=== PATIENT | male | born 1955 | race Caucasian/White ===

== ENCOUNTER 2019-05-29 15:45 | Inpatient (IN) | payer OTHER ==
[~2019-05-29] VITALS: Ht 180.3 cm; Wt 99.7 kg
[~2019-05-29 15:45] MED LIST: Bactrim Ds Tab1 EACH PO
[2019-05-29] MEDS ORDERED: Prinivil10 MG PO (16:11)
[2019-05-29] MEDS ORDERED: LASIX40 MG PO (16:12)
[2019-05-29 16:54] LABS: BASOPHILS ABSOLUTE AUTO 0.01 K/mm3 (0.00-0.23); BASOPHILS PERCENT AUTO 1 % (0-2); EOSINOPHILS ABSOLUTE AUTO 0.04 K/mm3 (0.00-0.68); EOSINOPHILS PERCENT AUTO 2 % (0-6); Hematocrit 45.8 % (37.0-53.0); Hemoglobin 16.2 g/dL (13.5-17.5); IMMATURE GRAN ABSOLUTE AUTO 0.01 K/mm3 (0.00-0.10); IMMATURE GRAN PERCENT AUTO 1 % (0-1); LYMPHOCYTES ABSOLUTE AUTO 0.67 K/mm3 (0.84-5.20); LYMPHOCYTES PERCENT AUTO 31 % (21-46); MONOCYTES PERCENT AUTO 9 % (4-13); Mean Corpuscular HGB 36.3 pg (26.0-34.0); Mean Corpuscular HGB Conc 35.4 g/dL (31.5-36.5); Mean Corpuscular Volume 103 fL (80-100); Mean Platelet Volume 10.7 fL (9.1-12.4); NEUTROPHILS ABSOLUTE AUTO 1.21 K/mm3 (1.96-9.15); NEUTROPHILS PERCENT AUTO 57 % (41-73); Platelet Count 82 K/mm3 (150-400); RDW Coefficient Variation 11.2 % (11.7-14.2); Red Blood Cell Count 4.46 M/mm3 (4.30-5.90); White Blood Cell Count 2.14 K/mm3 (4.00-11.30)
[2019-05-29 17:14] LABS: Alanine Aminotransfer (ALT/SGP 149 U/L (12-78); Albumin, Blood 3.1 g/dL (3.4-5.0); Albumin/Globulin Ratio 0.6 (0.8-1.8); Alk Phos 86 U/L (50-136); Anion Gap 7 mmol/L (6-16); Aspartate Aminotrans (AST/SGOT 218 U/L (12-37); Bilirubin, Total 0.8 mg/dL (0.1-1.0); Blood Urea Nitrogen 17 mg/dL (8-24); Bun/Creatinine Ratio 15.3 (12.0-20.0); CO2, Blood 25 mmol/L (21-32); Calcium, Blood 9.2 mg/dL (8.5-10.1); Chloride, Blood 97 mmol/L (98-108); Creatinine, Blood 1.11 mg/dL (0.60-1.20); Globulin, Blood 5.4 g/dL (2.2-4.0); Glomerular Filtration Rate >60 (60-); Glucose, Blood 136 mg/dL (70-99); Potassium, Blood 4.2 mmol/L (3.5-5.5); Sodium, Blood 129 mmol/L (136-145); Total Protein, Blood 8.5 g/dL (6.4-8.2)
[2019-05-29 17:44] LABS: Influenza A Negative (NEGATIVE); Influenza B Negative (NEGATIVE)
[2019-05-29 17:53] LABS: Blood, Urine 5+ (Neg); Glucose Qualitative, Urine Neg (Neg); Ketones, Urine 1+ (Neg); Leukocyte Esterase, Urine 1+ (Neg); Nitrite, Urine Pos (Neg); Protein, Urine 4+ (Neg); Urobilinogen, Urine 3+ (Normal)
[2019-05-29 18:15] LABS: Bilirubin, Urine 2+ (Neg); Color, Urine Amber (P-Yellow)
[2019-05-29 18:16] LABS: Appearance, Urine Clear (Clear)
[2019-05-29 18:17] LABS: Squamous Epithelial Cells Mod /hpf (Few)
[2019-05-29 18:18] LABS: Bacteria Rare /hpf; Yeast/Fungi Urine Few /hpf
[2019-05-29 18:19] LABS: Hyaline Casts Rare /lpf (0-2)
[2019-05-29 19:13] LABS: International Normalized Ratio 1.12; Prothrombin Time Results 11.9 Sec (9.7-11.5)
[2019-05-30 05:15] LABS: Hematocrit 41.2 % (37.0-53.0); Hemoglobin 14.4 g/dL (13.5-17.5); Mean Corpuscular Volume 103 fL (80-100); Mean Platelet Volume 10.1 fL (9.1-12.4); Platelet Count 63 K/mm3 (150-400); RDW Coefficient Variation 11.4 % (11.7-14.2); RDW Standard Deviation 43.3 fL (35.1-46.3)
[2019-05-30 05:29] LABS: Anion Gap 6 mmol/L (6-16); Blood Urea Nitrogen 16 mg/dL (8-24); Bun/Creatinine Ratio 18.4 (12.0-20.0); CO2, Blood 25 mmol/L (21-32); Calcium, Blood 8.1 mg/dL (8.5-10.1); Chloride, Blood 101 mmol/L (98-108); Creatinine, Blood 0.87 mg/dL (0.60-1.20); Glomerular Filtration Rate >60 (60-); Glucose, Blood 109 mg/dL (70-99); Sodium, Blood 132 mmol/L (136-145)
--- NOTE | 2019-05-30 07:40 | NUR ---
SHIFT SUMMARY PT A&O; O2 SATS >94 ON RA; DENIES SOB CURRENTLY; VSS; DENIES CHEST PAIN; HEP GTT INFUSING VERIFIED W/ DAY SHIFT RN; PT SEEMS OVERWHELMED AND IS TEARFUL AT TIMES; FACE IS FLUSHED AND WARM TO TOUCH HOWEVER PT IS AFEBRILE; DENIES NEEDS AT THIS TIME; CALL LIGHT IN REACH; BED IN LOWEST POSITION; REPORT GIVEN TO DAY SHIFT RN.
--- NOTE | 2019-05-30 08:47 | NUR ---
AM NOTE... ASSUMED CARE OF PT APROX 0700. PT IS A&Ox4 AND SBA IN THE ROOM. PT WAS ADMITTED FOR PE/DVTS. PT'S VS STABLE AT THIS TIME, PT IS ON RA, PT DENIES CHEST PAIN/PRESSURE N/V OR SOB AT THIS TIME. PT STATES HE FEELS BETTER THAN YESTERDAY WHEN HE CAME IN. WILL CONTINUE TO MONITOR.
[2019-05-30 13:12] LABS: Prostate Specific Antigen 0.239 ng/mL (0.000-4.000)
--- NOTE | 2019-05-30 18:45 | NUR ---
SHIFT SUMMARY... NO ACUTE NEGATIVE CHANGES NOTED THIS SHIFT. PT HAS DENIED ANY CHEST PAIN/PRESSURE THIS SHIFT. PT HAS DENIED SOB AND HAS BEEN ON RA ALL SHIFT. PT'S VS STABLE, HEPARIN GTT RUNNING PER ORDERS. PT HAS BEEN SBA TO THE BATHROOM TO VOID AND HAVE BM. CALL LIGHT IN REACH WILL CONTINUE TO MONITOR UNTIL REPORT IS GIVEN TO ONCOMING RN.
[2019-05-31 01:07] LABS: HBSAG SCREEN Negative (Negative); HEP A AB, IGM Negative (Negative); HEP B CORE AB, IGM Negative (Negative); HEP C VIRUS AB >11.0 (0.0-0.9)
[2019-05-31 03:25] LABS: BASOPHILS ABSOLUTE AUTO 0.02 K/mm3 (0.00-0.23); BASOPHILS PERCENT AUTO 1 % (0-2); EOSINOPHILS ABSOLUTE AUTO 0.36 K/mm3 (0.00-0.68); EOSINOPHILS PERCENT AUTO 14 % (0-6); Hemoglobin 13.7 g/dL (13.5-17.5); Mean Corpuscular HGB 36.8 pg (26.0-34.0); Mean Corpuscular HGB Conc 35.1 g/dL (31.5-36.5); Mean Corpuscular Volume 105 fL (80-100); Mean Platelet Volume 10.4 fL (9.1-12.4); Platelet Count 57 K/mm3 (150-400); RDW Coefficient Variation 11.5 % (11.7-14.2); RDW Standard Deviation 44.8 fL (35.1-46.3); Red Blood Cell Count 3.72 M/mm3 (4.30-5.90); White Blood Cell Count 2.63 K/mm3 (4.00-11.30)
[2019-05-31 03:33] LABS: IMMATURE GRAN ABSOLUTE AUTO 0.01 K/mm3 (0.00-0.10); IMMATURE GRAN PERCENT AUTO 0 % (0-1); LYMPHOCYTES ABSOLUTE AUTO 1.61 K/mm3 (0.84-5.20); LYMPHOCYTES PERCENT AUTO 61 % (21-46); MONOCYTES ABSOLUTE AUTO 0.16 K/mm3 (0.16-1.47); MONOCYTES PERCENT AUTO 6 % (4-13); NEUTROPHILS ABSOLUTE AUTO 0.47 K/mm3 (1.96-9.15); NEUTROPHILS PERCENT AUTO 18 % (41-73)
[2019-05-31 03:37] LABS: Anion Gap 5 mmol/L (6-16); Blood Urea Nitrogen 16 mg/dL (8-24); Bun/Creatinine Ratio 21.3 (12.0-20.0); CO2, Blood 25 mmol/L (21-32); Calcium, Blood 8.3 mg/dL (8.5-10.1); Chloride, Blood 105 mmol/L (98-108); Creatinine, Blood 0.75 mg/dL (0.60-1.20); Glomerular Filtration Rate >60 (60-); Glucose, Blood 97 mg/dL (70-99); Sodium, Blood 135 mmol/L (136-145)
--- NOTE | 2019-05-31 06:24 | NUR ---
SHIFT SUMMARY PT CONTINUES TO BE A&O X4. VSS. MONITOR SHOWS SB WHILE PT SLEEPING W/ HR TOUCHING LOW 45 BPM, AVERAGING 50's-60's. SPO2 > 92% ON RA. +1 BLE SWELLING. HEPARIN GTT & NS GTT INFUSING PER ORDERS. 24 HR URINE IN PROGRESS W/ URINE CONTAINER SITTING ON ICE. WILL CONTINUE TO MONITOR AND PROVIDE CARE UNTIL REPORT OFF TO DAY SHIFT RN.
--- NOTE | 2019-05-31 09:12 | NUR ---
AM NOTE... ASSUMED CARE OF PT APROX 0700. PT IS A&Ox4 AND SBA/IND IN THE ROOM. PT IS ON HEPARIN GTT PER ORDERS. PT DENIES ANY CHEST PAIN/PRESSURE N/V OR SOB. PT DENIES PAINS IN HIS LEGS. PT'S VS STABLE, SR/SB 50'S-60'S. L/S CLEAR T/O ON RA. BT PRESENT AND HYPERACTIVE ABD IS SOFT AND NONTENDER TO PALP. AT THE BEDSIDE. WILL CONTINUE TO MONITOR.
[2019-05-31] MEDS ORDERED: XARELTO15 MG PO (10:38)
--- NOTE | 2019-05-31 13:10 | NUR ---
PT D/C HOME... PT D/C HOME WITH ALL OF HIS BELONGINGS, VS STABLE, PT DENIES SOB OR CHEST PAIN AT THIS TIME. MEDS CALLED INTO PT'S PHARMACY OF CHOICE. DISCHARGE EDUCATION AND NEW MEDICATION EDUCATION PROVIDED. PT AND VERBALIZED THEIR UNDERSTANDING. PT'S IVS REMOVED WNL. PT WAS ESCORTED TO CAR VIA W/C.
[2019-06-03 15:09] LABS: A/G RATIO 0.7 (0.7-1.7); ALPHA-1-GLOBULIN 0.3 g/dL (0.0-0.4); ALPHA-2-GLOBULIN 0.8 g/dL (0.4-1.0); BETA GLOBULIN 0.9 g/dL (0.7-1.3); GAMMA GLOBULIN 2.1 g/dL (0.4-1.8); GLOBULIN, TOTAL 4.1 g/dL (2.2-3.9); M-SPIKE Not Observed g/dL (Not Observed); PROTEIN, TOTAL, SERUM 7.1 g/dL (6.0-8.5)
== END 2019-05-31 13:22 | disposition home or self-care (01) | DRG 176 ==
LOC: ER 15:45 → PCU 18:37
PROVIDERS: Internal Medicine; Physician Assistant; ADMIT Internal Medicine
DX: I26.99 Other pulmonary embolism without acute cor pulmonale (principal); E87.1 Hypo-osmolality and hyponatremia; N39.0 Urinary tract infection, site not specified; I82.403 Acute embolism and thrombosis of unspecified deep veins of lower extremity, bilateral; F10.20 Alcohol dependence, uncomplicated; D69.6 Thrombocytopenia, unspecified; K76.0 Fatty (change of) liver, not elsewhere classified; D72.819 Decreased white blood cell count, unspecified; Z87.891 Personal history of nicotine dependence
CPT/HCPCS: 36415; 71260; 74176; 76705; 80048; 80053; 80074; 81001; 81241; 83605; 84165; 85025; 85027; 85303; 85306; 85610; 85730; 87040; 87086; 87804; 90686; 93005; 93010; 93306; 96361; 96365-59; 96367; 96375-59; 99285-25; A9270; G0103; J0696; J1644; J2543; J3370; J7030; J7050; Q9967

== ENCOUNTER 2020-03-20 13:44 | Inpatient (IN) | payer OTHER ==
[~2020-03-20] VITALS: Ht 175.3 cm; Wt 95.0 kg
[~2020-03-20 13:44] MED LIST changes: +LASIX40 MG PO; +Prinivil10 MG PO; +XARELTO15 MG PO
[2020-03-20 14:15] LABS: BASOPHILS ABSOLUTE AUTO 0.01 K/mm3 (0.00-0.23); BASOPHILS PERCENT AUTO 0 % (0-2); EOSINOPHILS PERCENT AUTO 0 % (0-6); Hematocrit 25.9 % (37.0-53.0); Hemoglobin 8.9 g/dL (13.5-17.5); IMMATURE GRAN ABSOLUTE AUTO 0.04 K/mm3 (0.00-0.10); IMMATURE GRAN PERCENT AUTO 1 % (0-1); LYMPHOCYTES ABSOLUTE AUTO 1.08 K/mm3 (0.84-5.20); LYMPHOCYTES PERCENT AUTO 14 % (21-46); MONOCYTES ABSOLUTE AUTO 0.43 K/mm3 (0.16-1.47); MONOCYTES PERCENT AUTO 5 % (4-13); Mean Corpuscular HGB 37.9 pg (26.0-34.0); Mean Corpuscular HGB Conc 34.4 g/dL (31.5-36.5); Mean Corpuscular Volume 110 fL (80-100); Mean Platelet Volume 11.9 fL (9.1-12.4); NEUTROPHILS ABSOLUTE AUTO 6.42 K/mm3 (1.96-9.15); NEUTROPHILS PERCENT AUTO 81 % (41-73); Platelet Count 66 K/mm3 (150-400); RDW Coefficient Variation 13.2 % (11.7-14.2); RDW Standard Deviation 52.3 fL (35.1-46.3); Red Blood Cell Count 2.35 M/mm3 (4.30-5.90); White Blood Cell Count 7.98 K/mm3 (4.00-11.30)
[2020-03-20 14:33] LABS: Alanine Aminotransfer (ALT/SGP 43 U/L (12-78); Albumin, Blood 2.2 g/dL (3.4-5.0); Albumin/Globulin Ratio 0.4 (0.8-1.8); Alk Phos 71 U/L (50-136); Anion Gap 6 mmol/L (6-16); Aspartate Aminotrans (AST/SGOT 50 U/L (12-37); Bilirubin, Total 1.3 mg/dL (0.1-1.0); Blood Urea Nitrogen 14 mg/dL (8-24); Bun/Creatinine Ratio 18.3 (12.0-20.0); CO2, Blood 24 mmol/L (21-32); Calcium, Blood 8.8 mg/dL (8.5-10.1); Chloride, Blood 100 mmol/L (98-108); Creatinine, Blood 0.76 mg/dL (0.60-1.20); Glomerular Filtration Rate >60 (60-); Glucose, Blood 115 mg/dL (70-99); Potassium, Blood 3.8 mmol/L (3.5-5.5); Sodium, Blood 130 mmol/L (136-145); Total Protein, Blood 7.2 g/dL (6.4-8.2)
[2020-03-20 15:42] LABS: Influenza A, PCR Negative (NEGATIVE); Influenza B, PCR Negative (NEGATIVE); Resp Syncytial Virus, PCR Negative (NEGATIVE); SARS-Cov-2 (COVID-19) PCR, MMC Negative (NEGATIVE)
[2020-03-20] MEDS ORDERED: XARELTO20 M1 PO (16:18)
[2020-03-20] MEDS ORDERED: SPIRONOLACTONE25 MG PO (16:18)
[2020-03-20] MEDS ORDERED: FUROSEMIDE20 MG PO (16:18)
[2020-03-20] MEDS ORDERED: AMLODIPINE BESY10 MG PO (16:18)
[2020-03-20] MEDS ORDERED: SOFOSBUVIR-VEL1 EAC1 PO (19:25)
[2020-03-20 22:03] LABS: Hematocrit 24.7 % (37.0-53.0); Hemoglobin 8.4 g/dL (13.5-17.5)
--- NOTE | 2020-03-20 22:10 | NUR ---
ASSUMED CARE OF PATIENT AT APPROXIMATELY 1910 FROM HAFSA Jaquez RN. PATIENT NEW ADMIT FROM ER SHORTLY BEFORE SHIFT CHANGE. PATIENT ALERT AND ORIENTED X4; FORGETFUL. PATIENT DENIES PAIN, NUMBNESS, TINGLING, DIZZINESS OR NAUSEA. PATIENT USES URINAL IN BED. NSR ON TELE; OXYGEN SATURATION ABOVE 90% ON ROOM AIR. PIV S/L. PATIENT CURRENTLY RESTING IN BED; CALL LIGHT IN REACH; BED IN LOWEST POSISTION; BED ALARM ON; WILL CONTINUE TO MONITOR AND ASSESS UNTIL END OF SHIFT.
[2020-03-21 06:09] LABS: BASOPHILS ABSOLUTE AUTO 0.01 K/mm3 (0.00-0.23); BASOPHILS PERCENT AUTO 0 % (0-2); EOSINOPHILS ABSOLUTE AUTO 0.01 K/mm3 (0.00-0.68); EOSINOPHILS PERCENT AUTO 0 % (0-6); Hematocrit 25.3 % (37.0-53.0); Hemoglobin 8.6 g/dL (13.5-17.5); IMMATURE GRAN ABSOLUTE AUTO 0.03 K/mm3 (0.00-0.10); IMMATURE GRAN PERCENT AUTO 1 % (0-1); LYMPHOCYTES PERCENT AUTO 19 % (21-46); MONOCYTES PERCENT AUTO 6 % (4-13); Mean Corpuscular HGB 37.2 pg (26.0-34.0); Mean Corpuscular Volume 110 fL (80-100); Mean Platelet Volume 11.8 fL (9.1-12.4); NEUTROPHILS ABSOLUTE AUTO 4.58 K/mm3 (1.96-9.15); NEUTROPHILS PERCENT AUTO 73 % (41-73); Platelet Count 65 K/mm3 (150-400); RDW Coefficient Variation 13.2 % (11.7-14.2); RDW Standard Deviation 53.3 fL (35.1-46.3); Red Blood Cell Count 2.31 M/mm3 (4.30-5.90); White Blood Cell Count 6.23 K/mm3 (4.00-11.30)
[2020-03-21 06:21] LABS: International Normalized Ratio 1.49; Prothrombin Time Results 15.6 Sec (9.7-11.5)
[2020-03-21 06:36] LABS: Alanine Aminotransfer (ALT/SGP 39 U/L (12-78); Albumin/Globulin Ratio 0.4 (0.8-1.8); Alk Phos 64 U/L (50-136); Anion Gap 7 mmol/L (6-16); Aspartate Aminotrans (AST/SGOT 46 U/L (12-37); Bilirubin, Total 1.2 mg/dL (0.1-1.0); Blood Urea Nitrogen 13 mg/dL (8-24); Bun/Creatinine Ratio 17.3 (12.0-20.0); CO2, Blood 25 mmol/L (21-32); Calcium, Blood 8.7 mg/dL (8.5-10.1); Chloride, Blood 100 mmol/L (98-108); Creatinine, Blood 0.75 mg/dL (0.60-1.20); Globulin, Blood 4.7 g/dL (2.2-4.0); Glomerular Filtration Rate >60 (60-); Glucose, Blood 97 mg/dL (70-99); Potassium, Blood 3.9 mmol/L (3.5-5.5); Sodium, Blood 132 mmol/L (136-145); Total Protein, Blood 6.7 g/dL (6.4-8.2)
[2020-03-21 09:49] LABS: Percent Saturation 35.5 % (20.0-50.0)
--- NOTE | 2020-03-21 18:28 | NUR ---
PT SUMMARY: BOWEL PREP STARTED AT 1800 FOR COLONOSCOPY TOMORROW, PT AWARE AND EDUCATED ABOUT THE PREP. PT HAD A BOWEL MOVEMENT AT LUNCH TIME TODAY WITH NO BLOOD IN THE STOOL NOTED, STOOL YELLOW BROWN IN COLOR. HGB STABLE AT 8.6. NO OTHER SIGNS OF BLEEDING AT THIS TIME. PT HAS BEEN GETTING UP TO USE THE BATHROOM 1PA. USES URINAL TO VOID. PT REMAINS ON CLEAR LIQUID DIET. NO OTHER ISSUES ENCOUNTERED FOR THE SHIFT, VITALS HAS BEEN STABLE. DENIES ANY CHEST PAIN. CALL LIGHTS IN REACH, ABLE TO MAKE NEEDS KNOWN WILL REPORT TO ONCOMING SHIFT
--- NOTE | 2020-03-21 21:06 | NUR ---
ASSUMED CARE OF PATIENT AT APPROXIMATELY 1900 FROM BON Jaquez RN. PATIENT ALERT AND ORIENTED X4. PATIENT DENIES PAIN, NUMBNESS, TINGLING, DIZZINESS OR NAUSEA. PATIENT ON BEDSIDE COMMODE DURING BEDSIDE REPORT. STOOL WAS DESCRIBED BY BANDSAW OPERATOR "SEO COLA"; NOW IS A YELLOW GREEN COLOR. PATIENT TO TAKE HIS SECOND HALF OF GOLCubeyouLY AT 2200. NSR ON TELE; OXYGEN SATURATION ABOVE 90% ON ROOM AIR. PIV S/L. PATIENT CURRENTLY RESTING IN BED; CALL LIGHT IN REACH; BED IN LOWEST POSISTION; WILL CONTINUE TO MONITOR AND ASSESS UNTIL END OF SHIFT.
--- NOTE | 2020-03-21 23:19 | NUR ---
TWO LARGE BM'S; ONE YELLOW LIQUID WITH RED BLOOD NOTED AND BLOOD AFTER WIPING AND A SECOND OF YELLOW LIQUID. VSS. PATIENT FINISHED 2ND HALF OF GOLYTELY WITHIN 45 MINUTES.
--- NOTE | 2020-03-21 23:20 | NUR ---
STOOL YELLOW AND CLEAR
[2020-03-22 03:37] LABS: BASOPHILS ABSOLUTE AUTO 0.01 K/mm3 (0.00-0.23); BASOPHILS PERCENT AUTO 0 % (0-2); EOSINOPHILS ABSOLUTE AUTO 0.01 K/mm3 (0.00-0.68); EOSINOPHILS PERCENT AUTO 0 % (0-6); Hematocrit 24.8 % (37.0-53.0); Hemoglobin 8.3 g/dL (13.5-17.5); IMMATURE GRAN ABSOLUTE AUTO 0.03 K/mm3 (0.00-0.10); IMMATURE GRAN PERCENT AUTO 1 % (0-1); LYMPHOCYTES ABSOLUTE AUTO 1.16 K/mm3 (0.84-5.20); LYMPHOCYTES PERCENT AUTO 19 % (21-46); MONOCYTES PERCENT AUTO 7 % (4-13); Mean Corpuscular HGB 36.7 pg (26.0-34.0); Mean Corpuscular HGB Conc 33.5 g/dL (31.5-36.5); Mean Corpuscular Volume 110 fL (80-100); Mean Platelet Volume 11.9 fL (9.1-12.4); NEUTROPHILS ABSOLUTE AUTO 4.37 K/mm3 (1.96-9.15); NEUTROPHILS PERCENT AUTO 73 % (41-73); Platelet Count 63 K/mm3 (150-400); RDW Coefficient Variation 13.1 % (11.7-14.2); Red Blood Cell Count 2.26 M/mm3 (4.30-5.90); White Blood Cell Count 5.98 K/mm3 (4.00-11.30)
[2020-03-22 03:55] LABS: Anion Gap 6 mmol/L (6-16); Blood Urea Nitrogen 12 mg/dL (8-24); Bun/Creatinine Ratio 15.4 (12.0-20.0); CO2, Blood 26 mmol/L (21-32); Calcium, Blood 8.7 mg/dL (8.5-10.1); Chloride, Blood 100 mmol/L (98-108); Creatinine, Blood 0.78 mg/dL (0.60-1.20); Glomerular Filtration Rate >60 (60-); Glucose, Blood 106 mg/dL (70-99); Potassium, Blood 3.6 mmol/L (3.5-5.5); Sodium, Blood 132 mmol/L (136-145)
--- NOTE | 2020-03-22 06:31 | NUR ---
PATIENT SLEPT ABOUT SIX HOURS LAST NIGHT. VSS. WILL CONTINUE TO MONITOR AND ASSESS UNTIL END OF SHIFT.
--- NOTE | 2020-03-22 11:17 | NUR ---
INTO SDS VIA GURPictrition AppY FROM PCU ROOM. History, Chart, Medications and Allergies reviewed before start of procedure.Patient confirms NPO status and agrees with scheduled surgery. Patient states colon prep results clear.Lungs clear T/O to Auscultation.
--- NOTE | 2020-03-22 11:25 | NUR ---
03/22/20 1125 My Loco History, Chart, Medications and Allergies reviewed before start of procedure.Patient confirms NPO status and agrees with scheduled surgery.3-LEAD EKG REVIEWED WITH PHYSICIAN PRIOR TO START OF PROCEDURE.MONITOR INTACT WITH CONTINUOUS PULSE OXIMETRY AND INTERMITTENT BP.O2 VIA N/C INTACT THROUGHOUT SEDATION/PROCEDURE. PATIENT DETERMINED TO BE ASA APPROPRIATE FOR PROPOFOL SEDATION PRIOR TO START OF PROCEDURE BY DR. PALMA
--- NOTE | 2020-03-22 13:23 | NUR ---
Received pt from endoscopy. Arlene rn, accompanied pt to PCU 8. Pt was assisted by Arlene and myself to the bedside commode from the stretcher. He is unsteady and weak. Arlene states that he had a fever during the procedure, and Dr. Belcher is aware. Gait belt put on for safety and pt stability while transferring.
--- NOTE | 2020-03-22 13:35 | NUR ---
Dr. Belcher here to see the patient. New orders received. Gave Niak Burton RN, bedside report.
--- NOTE | 2020-03-22 15:04 | NUR ---
PT ARRIVED BACK IN THE UNIT POST COLONOSCOPY PROCEDURE. PT HAD MULTIPLE POLYPS REMOVAL, PT TO REMAIN ON CLEAR LIQUID DIET WAS ALSO STARTED ON IV ZOSYN. PER REPORT BLEEDING WAS FROM HEMORRHOIDS, CREAM WAS ORDERED BID. DR PALMA SPOKE WITH THE PT ABOUT THE PLAN, PT TO STAY OVER NIGHT FOR OBSERVATION. PT WAS C/O CHILLS AND BEING COLD HR TACH UP TO 130'S BP SYSTOLIC 130-160'S, SATS ABOVE 94% ON RA, AFEBRILE. PT WAS GIVEN WARM BLANKETS AND HEATING PAD PT STARTED TO CALM DOWN AND FELT BETTER. PT ALSO C/O ABD PAIN 3/10 MOSTLY FROM PROCEDURE PT STATED. PT IS NOW RESTING IN BED, AT BEDSIDE AWARE OF THE PLANS. CALL LIGHTS IN REACH WILL CONTINUE TO MONITOR
--- NOTE | 2020-03-22 18:35 | NUR ---
IV dressing noted loose. It was removed, and insertion site was cleansed per the usual routine and dressed with sterile window dressing. No swelling, no redness, no tenderness at the site. IV infusing continuously.
--- NOTE | 2020-03-22 18:40 | NUR ---
PT SUMMARY: PT RAISED A TEMP 102 AFTER PT HAD CHILLS SUSPECTING MAYBE DUE TO HEATING PAD AND WARM BLANKETS REQUESTED BY PT, TEMP WENT DOWN TO 99.5 AFTER [facility] BLANKETS REMOV[facility], DR PACKER MADE AWARE ORDERED BLOOD CULTURE FOR POSSIBLE SEPSIS. PT IS NOW CALM AND RESTED IN BED VITALS BACK TO BASELINE HRR SR 90'S, BP SYSTOLIC 108, SATS ABOVE 95% ON RA AFEBRILE. PT CONTINUES TO HAVE BLOODY DISCHARGE PER RECTUM DUE TO HEMMORHOIDS, TO START HEMMORHOID CREAM TONIGHT. PT WITH NO COMPLAINTS AT THIS TIME, PT IN BED, CALL LIGHTS IN REACH, WILL REPORT TO ONCOMING SHIFT
[2020-03-23 04:49] LABS: BASOPHILS ABSOLUTE AUTO 0.02 K/mm3 (0.00-0.23); BASOPHILS PERCENT AUTO 0 % (0-2); Hematocrit 24.7 % (37.0-53.0); Hemoglobin 8.5 g/dL (13.5-17.5); LYMPHOCYTES ABSOLUTE AUTO 1.66 K/mm3 (0.84-5.20); LYMPHOCYTES PERCENT AUTO 28 % (21-46); MONOCYTES ABSOLUTE AUTO 0.54 K/mm3 (0.16-1.47); MONOCYTES PERCENT AUTO 9 % (4-13); Mean Corpuscular HGB 38.1 pg (26.0-34.0); Mean Corpuscular HGB Conc 34.4 g/dL (31.5-36.5); Mean Corpuscular Volume 111 fL (80-100); Mean Platelet Volume 12.4 fL (9.1-12.4); Platelet Count 59 K/mm3 (150-400); RDW Coefficient Variation 13.3 % (11.7-14.2); RDW Standard Deviation 53.8 fL (35.1-46.3); Red Blood Cell Count 2.23 M/mm3 (4.30-5.90); White Blood Cell Count 5.93 K/mm3 (4.00-11.30)
[2020-03-23 04:59] LABS: EOSINOPHILS ABSOLUTE AUTO 0.01 K/mm3 (0.00-0.68); EOSINOPHILS PERCENT AUTO 0 % (0-6); IMMATURE GRAN ABSOLUTE AUTO 0.04 K/mm3 (0.00-0.10); IMMATURE GRAN PERCENT AUTO 1 % (0-1); NEUTROPHILS ABSOLUTE AUTO 3.66 K/mm3 (1.96-9.15); NEUTROPHILS PERCENT AUTO 62 % (41-73)
[2020-03-23 05:18] LABS: Bun/Creatinine Ratio 13.4 (12.0-20.0); Calcium, Blood 8.6 mg/dL (8.5-10.1); Creatinine, Blood 1.34 mg/dL (0.60-1.20); Potassium, Blood 3.7 mmol/L (3.5-5.5)
--- NOTE | 2020-03-23 06:13 | NUR ---
SHIFT SUMMARY PT ALERT AND ORIENTED X 4. SLOW TO RESPOND. HR STABLE. BP HYPOTENSIVE AT TIMES. DISCUSSED WITH SILHOUETTE ARTIST. MAP REMAINED STABLE, AND PT IS HYPOTENSIVE AT BASELINE AT TIMES. PT REPORTS NO SYMPTOMS OF HYPOTENSION. PT ABLE TO TURN SELF IN BED. OXYGEN SATURATION MAINTAINED ABOVE 92% ON RA. PT REPORTED PAIN DURING SHIFT IN ABD. PHYSICIAN INFORMED, MEDICATION GIVEN PER EMAR. PT REPORTS RELIEF. WILL CONTINUE TO MONITOR UNTIL REPORT GIVEN TO DAYSHIFT RN.
--- NOTE | 2020-03-23 10:20 | NUR ---
2 calls from micro, pt + for gram + cocsic in chains, stated she was aware of results when called, no change noted in pt, will continue to monitor and treat
--- NOTE | 2020-03-23 13:55 | NUR ---
Echocardiogram performed by Yamilka Redding under my superviosion.
--- NOTE | 2020-03-23 19:29 | NUR ---
no blood noted from gi bleed, pt looking forward to procedure tomorrow, calllight in reach, saline locked, 3L via nc, bed in low positon, bsr shared with pt and noc nurse
--- NOTE | 2020-03-24 00:15 | NUR ---
PHYSICIAN NOTIFIED PHYSICIAN NOTIFIED OF PT'S HYPOTENSIVE STATE. MAP NOT ABOVE 65. PHYSICIAN ORDERED 1 L FLUID BOLUS OVER 1 HR. WILL REASSESS.
--- NOTE | 2020-03-24 02:46 | NUR ---
PHYSICIAN NOTIFIED PHYSICIAN NOTIFIED OF PT'S BP AFTER FLUID BOLUS OF 101/45, AND 99/41. NO ORDERS PROVIDED AT THIS TIME. WILL CONTINUE TO MONITOR.
[2020-03-24 04:15] LABS: BASOPHILS ABSOLUTE AUTO 0.02 K/mm3 (0.00-0.23); BASOPHILS PERCENT AUTO 0 % (0-2); EOSINOPHILS ABSOLUTE AUTO 0.04 K/mm3 (0.00-0.68); EOSINOPHILS PERCENT AUTO 1 % (0-6); Hematocrit 24.5 % (37.0-53.0); Hemoglobin 8.5 g/dL (13.5-17.5); IMMATURE GRAN ABSOLUTE AUTO 0.02 K/mm3 (0.00-0.10); IMMATURE GRAN PERCENT AUTO 0 % (0-1); LYMPHOCYTES ABSOLUTE AUTO 2.03 K/mm3 (0.84-5.20); LYMPHOCYTES PERCENT AUTO 33 % (21-46); MONOCYTES PERCENT AUTO 6 % (4-13); Mean Corpuscular HGB 38.1 pg (26.0-34.0); Mean Corpuscular HGB Conc 34.7 g/dL (31.5-36.5); Mean Corpuscular Volume 110 fL (80-100); Mean Platelet Volume 12.1 fL (9.1-12.4); NEUTROPHILS ABSOLUTE AUTO 3.74 K/mm3 (1.96-9.15); NEUTROPHILS PERCENT AUTO 60 % (41-73); Platelet Count 64 K/mm3 (150-400); RDW Coefficient Variation 13.2 % (11.7-14.2); RDW Standard Deviation 52.8 fL (35.1-46.3); Red Blood Cell Count 2.23 M/mm3 (4.30-5.90); White Blood Cell Count 6.25 K/mm3 (4.00-11.30)
[2020-03-24 04:32] LABS: Anion Gap 6 mmol/L (6-16); Blood Urea Nitrogen 20 mg/dL (8-24); Bun/Creatinine Ratio 18.2 (12.0-20.0); CO2, Blood 25 mmol/L (21-32); Calcium, Blood 8.3 mg/dL (8.5-10.1); Chloride, Blood 102 mmol/L (98-108); Glomerular Filtration Rate >60 (60-); Glucose, Blood 95 mg/dL (70-99); Sodium, Blood 133 mmol/L (136-145)
--- NOTE | 2020-03-24 06:19 | NUR ---
SHIFT SUMMARY PT SLEPT T/O SHIFT. PT HYPOTENSIVE AT TIMES. PHYSICIAN NOTIFIED. 1 L FLUID BOLUS ORDERED. PT STILL HYPOTENSIVE MAP ABOVE 60. PHYSICIAN NOTIFIED. NO ORDERS AT THIS TIME. PT STATES THEY "FEEL BETTER." HR STABLE. PT REPORTS NO CP OR PRESSURE. OXYGEN SATURATION MAINTAINED ABOVE 92% ON RA. PT ABLE TO TURN SELF IN BED NEEDED. PT NPO AT MIDNIGHT. WILL CONTINUE TO MONITOR UNTIL REPORT GIVEN TO DAYSHIFT RN.
--- NOTE | 2020-03-24 08:17 | NUR ---
MAP THIS AT <65; NOTIFIED DR ACEVEDO; NEW ORDERS FOR 250 CC BOLUS OF NORMAL SALINE AND CONTINUE WITH PLANS FOR ADALGISA. BP TRENDING UP. DR ACEVEDO AT BEDSIDE; PT PLACED ON 2L O2 VIA NC FOR PROCEDURE; ADALGISA COMPLETED. PT STARTED COUGHING MID WAY; SUCTION AT BEDSIDE; PT CONTINUES TO COUGH AFTER PROCEDUE. VSS. WILL CONTINUE TO MONITOR.
--- NOTE | 2020-03-24 11:08 | NUR ---
ASSUMED CARE FROM DANIEL RN. PT HAD A ADALGISA COMPLETED THIS AM WITH DR. ACEVEDO. VERSED AND FENTENYL WERE GIVEN AT BEDSIDE, SUCTION WAS USED, PT TOLERATED WELL. VS ARE NOW STABLE, BP WAS LOW THIS MORNING AND MEDICATION AND A BOLUS OF FLUIDS WERE GIVEN TO RECTIFY THAT. PT HAS BEEN USING THE URINAL INDEPENDENTLY IN BED. PT IS FORGETFUL AT TIMES AND CAN BE SLOW TO RESPOND. OTHER VS STABLE. PT IS TOLERATING PO FOLLOWING ADALGISA WELL AND ABLE TO SWALLOW PILLS WITHOUT ISSUE.
--- NOTE | 2020-03-24 11:10 | NUR ---
TRANSFER TO [facility] REPORT GIVEN TO RNABDIFATAH. PT IS AWARE OF TRANSFER, PT'S IS AWARE OF TRANSFER. HOME MEDICATIONS ARE TO ACCOMPANY THE PT. REPORT WAS GIVEN TO ABDIFATAH AROUND 1100AM ON 03/24/20.
--- NOTE | 2020-03-24 12:52 | NUR ---
COBRA TRANSFER TO [facility] PT LEFT VIA [facility] AT APPROX 1205 ACCOMPANIED BY TWO EMT'S. PT LEFT WITH SOME PERSONAL BELONGINGS, PHONE STAFFING MANAGER AND PHONE, CLOTHING, HOME MEDICATION AND SHOES; TOOK ADDITIONAL HOME MEDS, CANE AND DIRTY CLOTHING HOME. PT WAS GIVEN MIDODRINE ABOUT 15 MINUTES PRIOR TO LEAVING THE PCU AND LEFT WITH KVO FLUIDS AND ANTIBIOTIC RUNNING. VS STABLE, BREATHING STABLE, PT COOPERATIVE UPON TRANSFER
== END 2020-03-24 12:30 | disposition short-term general hospital (02) | DRG 393 ==
LOC: ER 13:44 → ICUW 13:45 → PCU 13:45 → ER 18:15 → PCU 18:15 → ICUW 18:15 → PCU 18:15 → ICUW 18:30 → PCU 03-21 16:35
PROVIDERS: Emergency Medicine; Student in an Organized Health Care Education/Training Program; ADMIT Internal Medicine
PROC: 0DBK8ZX Excision of Ascending Colon, Via Natural or Artificial Opening Endoscopic, Diagnostic (ICD-10-PCS; principal; 2020-03-22 10:00)
PROC: 0DBP8ZX Excision of Rectum, Via Natural or Artificial Opening Endoscopic, Diagnostic (ICD-10-PCS; 2020-03-22 10:00)
PROC: 0DBM8ZX Excision of Descending Colon, Via Natural or Artificial Opening Endoscopic, Diagnostic (ICD-10-PCS; 2020-03-22 10:00)
PROC: 0DBH8ZX Excision of Cecum, Via Natural or Artificial Opening Endoscopic, Diagnostic (ICD-10-PCS; 2020-03-22 10:00)
PROC: 0W3P8ZZ Control Bleeding in Gastrointestinal Tract, Via Natural or Artificial Opening Endoscopic (ICD-10-PCS; 2020-03-22 10:00)
PROC: 0D5H8ZZ Destruction of Cecum, Via Natural or Artificial Opening Endoscopic (ICD-10-PCS; 2020-03-22 10:00)
PROC: 0DJ08ZZ Inspection of Upper Intestinal Tract, Via Natural or Artificial Opening Endoscopic (ICD-10-PCS; 2020-03-22 10:00)
PROC: B24BZZ4 Ultrasonography of Heart with Aorta, Transesophageal (ICD-10-PCS; 2020-03-24)
DX: K64.4 Residual hemorrhoidal skin tags (principal); I33.0 Acute and subacute infective endocarditis; K76.6 Portal hypertension; E87.1 Hypo-osmolality and hyponatremia; Z87.891 Personal history of nicotine dependence; E78.5 Hyperlipidemia, unspecified; I10 Essential (primary) hypertension; Z20.828 Contact with and (suspected) exposure to other viral communicable diseases; B18.2 Chronic viral hepatitis C; K64.8 Other hemorrhoids; K76.0 Fatty (change of) liver, not elsewhere classified; D69.6 Thrombocytopenia, unspecified; I35.1 Nonrheumatic aortic (valve) insufficiency; K74.60 Unspecified cirrhosis of liver; B95.4 Other streptococcus as the cause of diseases classified elsewhere
CPT/HCPCS: 0241U; 36415; 74176; 76705; 80048; 80053; 82105; 82607; 82728; 82746; 83540; 83550; 85014; 85018; 85025; 85610; 85651; 86850; 86900; 86901; 87040; 87184; 88305; 93306; 93312; 93325; 96374; 96375; 96376; 99285-25; A9270; C9113; G0378; J0171; J0290; J2250; J2543; J2704; J3010; J7030; J7050; J7120

== ENCOUNTER 2020-04-04 | Day surgery (SDC) | payer OTHER ==
[~2020-04-04] MED LIST changes: +AMLODIPINE BESY10 MG PO; +FUROSEMIDE20 MG PO; +SOFOSBUVIR-VEL1 EAC1 PO; +SPIRONOLACTONE25 MG PO; +XARELTO20 M1 PO
[2020-04-04] MEDS ORDERED: MAGNESIUM OXID400 M1 PO (10:42)
[2020-04-04] MEDS ORDERED: ACET325 PO (10:42)
[2020-04-04] MEDS ORDERED: ONDA4ODT MM (10:42)
[2020-04-04] MEDS ORDERED: LISI5 PO (10:43)
--- NOTE | 2020-04-04 10:45 | NUR ---
REVIEWED HIS WRITTEN DISCHARGE INSTRUCTIONS FROM [facility]OMAS WITH HIM PER HIS REQUEST AND ANSWERED QUESTIONS.
== END 2020-04-04 10:07 | disposition home or self-care (01) ==
LOC: ATC
DX: I33.0 Acute and subacute infective endocarditis (principal); R78.81 Bacteremia; B95.4 Other streptococcus as the cause of diseases classified elsewhere; I10 Essential (primary) hypertension; M19.90 Unspecified osteoarthritis, unspecified site; K74.60 Unspecified cirrhosis of liver; K76.6 Portal hypertension; K31.89 Other diseases of stomach and duodenum; N17.9 Acute kidney failure, unspecified; E87.1 Hypo-osmolality and hyponatremia; D69.6 Thrombocytopenia, unspecified; Z79.2 Long term (current) use of antibiotics; Z79.899 Other long term (current) drug therapy; Z86.718 Personal history of other venous thrombosis and embolism; Z79.01 Long term (current) use of anticoagulants; Z20.828 Contact with and (suspected) exposure to other viral communicable diseases
CPT/HCPCS: 96365; J0696

== ENCOUNTER 2020-04-05 00:24 | Day surgery (SDC) | payer OTHER ==
[~2020-04-05 00:24] MED LIST changes: +ACET325 PO; +LISI5 PO; +MAGNESIUM OXID400 M1 PO; +ONDA4ODT MM
--- NOTE | 2020-04-05 10:07 | NUR ---
PTS NEICE WITH PT TODAY. NEICE UNAWARE OF LOW BP. FAMILY HOWEVER IS AWARE PT HAS BEEN RUNNING LOW. SUGGESTED ER VISIT FOR POSSIBLE IV FLUIDS. NEICE TO SWING BY ER AFTER ABX THIS MORNING. PT REPORTS NO SYMPTOMS OF LOW BP. PT HAS A WAY TO CHECK BP AT HOME AND EDUCATED ON SYMPTOMS AND RETURNING TO ER IF SYMPTOMS APPEAR OR IF BP CONTINUES TO DROP. NEICE AND PT VERBALIZE UNDERSTANDING
== END 2020-04-05 09:57 | disposition home or self-care (01) ==
LOC: ATC 00:24
DX: I33.0 Acute and subacute infective endocarditis (principal); R78.81 Bacteremia; B95.4 Other streptococcus as the cause of diseases classified elsewhere; I10 Essential (primary) hypertension; M19.90 Unspecified osteoarthritis, unspecified site; K74.60 Unspecified cirrhosis of liver; K76.6 Portal hypertension; K31.89 Other diseases of stomach and duodenum; N17.9 Acute kidney failure, unspecified; E87.1 Hypo-osmolality and hyponatremia; D69.6 Thrombocytopenia, unspecified; Z86.718 Personal history of other venous thrombosis and embolism; Z79.01 Long term (current) use of anticoagulants; Z79.2 Long term (current) use of antibiotics; Z79.899 Other long term (current) drug therapy; Z20.828 Contact with and (suspected) exposure to other viral communicable diseases
CPT/HCPCS: 96365; J0696

== ENCOUNTER 2020-04-06 00:32 | Day surgery (SDC) | payer OTHER ==
[2020-04-07] MEDS ORDERED: CEFTRIAXONE2 G1 IV (09:44)
== END 2020-04-06 10:23 | disposition home or self-care (01) ==
LOC: ATC 00:32
DX: I33.0 Acute and subacute infective endocarditis (principal); R78.81 Bacteremia; B95.4 Other streptococcus as the cause of diseases classified elsewhere; I10 Essential (primary) hypertension; M19.90 Unspecified osteoarthritis, unspecified site; K74.60 Unspecified cirrhosis of liver; K76.6 Portal hypertension; K31.89 Other diseases of stomach and duodenum; N17.9 Acute kidney failure, unspecified; E87.1 Hypo-osmolality and hyponatremia; D69.6 Thrombocytopenia, unspecified; Z79.2 Long term (current) use of antibiotics; Z79.01 Long term (current) use of anticoagulants; Z79.899 Other long term (current) drug therapy; Z86.718 Personal history of other venous thrombosis and embolism; Z20.828 Contact with and (suspected) exposure to other viral communicable diseases
CPT/HCPCS: J0696

== ENCOUNTER 2020-04-07 00:27 | Day surgery (SDC) | payer OTHER ==
[2020-04-07 09:40] LABS: BASOPHILS ABSOLUTE AUTO 0.04 K/mm3 (0.00-0.23); BASOPHILS PERCENT AUTO 0 % (0-2); EOSINOPHILS ABSOLUTE AUTO 0.03 K/mm3 (0.00-0.68); EOSINOPHILS PERCENT AUTO 0 % (0-6); Hematocrit 30.1 % (37.0-53.0); Hemoglobin 9.8 g/dL (13.5-17.5); IMMATURE GRAN ABSOLUTE AUTO 0.07 K/mm3 (0.00-0.10); IMMATURE GRAN PERCENT AUTO 1 % (0-1); LYMPHOCYTES PERCENT AUTO 17 % (21-46); MONOCYTES ABSOLUTE AUTO 0.45 K/mm3 (0.16-1.47); MONOCYTES PERCENT AUTO 4 % (4-13); Mean Corpuscular HGB Conc 32.6 g/dL (31.5-36.5); Mean Corpuscular Volume 111 fL (80-100); Mean Platelet Volume 11.3 fL (9.1-12.4); NEUTROPHILS ABSOLUTE AUTO 8.43 K/mm3 (1.96-9.15); NEUTROPHILS PERCENT AUTO 77 % (41-73); Platelet Count 88 K/mm3 (150-400); RDW Coefficient Variation 16.4 % (11.7-14.2); RDW Standard Deviation 67.8 fL (35.1-46.3); Red Blood Cell Count 2.72 M/mm3 (4.30-5.90); White Blood Cell Count 10.92 K/mm3 (4.00-11.30)
[2020-04-07] MEDS ORDERED: CEFTRIAXONE2 G1 IV (09:44)
[2020-04-07 09:49] LABS: Alanine Aminotransfer (ALT/SGP 21 U/L (12-78); Albumin/Globulin Ratio 0.4 (0.8-1.8); Alk Phos 57 U/L (50-136); Anion Gap 6 mmol/L (6-16); Aspartate Aminotrans (AST/SGOT 34 U/L (12-37); Bilirubin, Total 1.5 mg/dL (0.1-1.0); Blood Urea Nitrogen 19 mg/dL (8-24); Bun/Creatinine Ratio 23.5 (12.0-20.0); CO2, Blood 25 mmol/L (21-32); Calcium, Blood 8.3 mg/dL (8.5-10.1); Chloride, Blood 99 mmol/L (98-108); Creatinine, Blood 0.81 mg/dL (0.60-1.20); Globulin, Blood 5.3 g/dL (2.2-4.0); Glomerular Filtration Rate >60 (60-); Glucose, Blood 121 mg/dL (70-99); Potassium, Blood 4.1 mmol/L (3.5-5.5); Sodium, Blood 130 mmol/L (136-145); Total Protein, Blood 7.3 g/dL (6.4-8.2)
== END 2020-04-07 09:51 | disposition home or self-care (01) ==
LOC: ATC 00:27
PROVIDERS: Internal Medicine Infectious Disease
DX: I33.0 Acute and subacute infective endocarditis (principal); R78.81 Bacteremia; B95.4 Other streptococcus as the cause of diseases classified elsewhere; I10 Essential (primary) hypertension; B19.20 Unspecified viral hepatitis C without hepatic coma; D69.6 Thrombocytopenia, unspecified; M19.90 Unspecified osteoarthritis, unspecified site; K74.60 Unspecified cirrhosis of liver; E87.1 Hypo-osmolality and hyponatremia; K76.0 Fatty (change of) liver, not elsewhere classified; N17.9 Acute kidney failure, unspecified; Z87.891 Personal history of nicotine dependence; Z86.711 Personal history of pulmonary embolism; Z20.828 Contact with and (suspected) exposure to other viral communicable diseases; Z79.899 Other long term (current) drug therapy; Z86.718 Personal history of other venous thrombosis and embolism; Z79.01 Long term (current) use of anticoagulants; Z79.2 Long term (current) use of antibiotics; K76.6 Portal hypertension; K31.89 Other diseases of stomach and duodenum
CPT/HCPCS: 80053; 85025; 85651; 86140; J0696

== ENCOUNTER 2020-04-08 00:08 | Day surgery (SDC) | payer OTHER ==
[~2020-04-08 00:08] MED LIST changes: +CEFTRIAXONE2 G1 IV
== END 2020-04-08 10:24 | disposition home or self-care (01) ==
LOC: ATC 00:08
DX: I33.0 Acute and subacute infective endocarditis (principal); B95.4 Other streptococcus as the cause of diseases classified elsewhere; R78.81 Bacteremia; M47.812 Spondylosis without myelopathy or radiculopathy, cervical region; M47.816 Spondylosis without myelopathy or radiculopathy, lumbar region; I35.1 Nonrheumatic aortic (valve) insufficiency; B19.20 Unspecified viral hepatitis C without hepatic coma; I10 Essential (primary) hypertension; K74.60 Unspecified cirrhosis of liver; F10.11 Alcohol abuse, in remission; Z86.718 Personal history of other venous thrombosis and embolism; Z79.01 Long term (current) use of anticoagulants; Z87.891 Personal history of nicotine dependence; Z86.711 Personal history of pulmonary embolism
CPT/HCPCS: 96365; J0696

== ENCOUNTER 2020-04-10 01:03 | Day surgery (SDC) | payer OTHER | END 2020-04-10 10:27 | disposition home or self-care (01) | LOC: ATC 01:03 | DX: I33.0 Acute and subacute infective endocarditis (principal); R78.81 Bacteremia; B95.4 Other streptococcus as the cause of diseases classified elsewhere; I10 Essential (primary) hypertension; M47.819 Spondylosis without myelopathy or radiculopathy, site unspecified; M48.00 Spinal stenosis, site unspecified; K74.60 Unspecified cirrhosis of liver; K76.0 Fatty (change of) liver, not elsewhere classified; Z79.2 Long term (current) use of antibiotics; Z79.899 Other long term (current) drug therapy; Z86.718 Personal history of other venous thrombosis and embolism; Z79.01 Long term (current) use of anticoagulants; Z86.711 Personal history of pulmonary embolism; Z20.822 Contact with and (suspected) exposure to COVID-19 | CPT/HCPCS: J0696 ==

== ENCOUNTER 2020-04-11 00:53 | Day surgery (SDC) | payer OTHER | END 2020-04-11 10:05 | disposition home or self-care (01) | LOC: ATC 00:53 | DX: I33.0 Acute and subacute infective endocarditis (principal); R78.81 Bacteremia; B95.4 Other streptococcus as the cause of diseases classified elsewhere; I10 Essential (primary) hypertension; M47.819 Spondylosis without myelopathy or radiculopathy, site unspecified; M48.00 Spinal stenosis, site unspecified; K74.60 Unspecified cirrhosis of liver; K76.0 Fatty (change of) liver, not elsewhere classified; Z79.2 Long term (current) use of antibiotics; Z79.01 Long term (current) use of anticoagulants; Z79.899 Other long term (current) drug therapy; Z86.718 Personal history of other venous thrombosis and embolism; Z86.711 Personal history of pulmonary embolism; Z20.822 Contact with and (suspected) exposure to COVID-19 | CPT/HCPCS: J0696 ==

== ENCOUNTER 2020-04-13 00:26 | Day surgery (SDC) | payer OTHER ==
[2020-04-14] MEDS ORDERED: EPCLUSA 200 MG1 EACH PO (10:34)
[2020-04-26] MEDS ORDERED: SOFOSBUVIR-VEL1 EAC1 PO ×2 (05:46→16:45)
[2020-04-26] MEDS ORDERED: AMLO10 PO (16:41)
[2020-04-27] MEDS ORDERED: VISBIOME 112.51 EACH PO (14:41)
== END 2020-04-13 10:26 | disposition home or self-care (01) ==
LOC: ATC 00:26
DX: I33.0 Acute and subacute infective endocarditis (principal); R78.81 Bacteremia; B95.4 Other streptococcus as the cause of diseases classified elsewhere; I10 Essential (primary) hypertension; B19.20 Unspecified viral hepatitis C without hepatic coma; K76.0 Fatty (change of) liver, not elsewhere classified; D69.6 Thrombocytopenia, unspecified; K74.60 Unspecified cirrhosis of liver; Z20.822 Contact with and (suspected) exposure to COVID-19; Z79.2 Long term (current) use of antibiotics; Z79.899 Other long term (current) drug therapy; Z86.718 Personal history of other venous thrombosis and embolism; Z79.01 Long term (current) use of anticoagulants; Z86.711 Personal history of pulmonary embolism
CPT/HCPCS: 96365; J0696

== ENCOUNTER 2020-04-14 00:17 | Day surgery (SDC) | payer OTHER ==
--- NOTE | 2020-04-14 10:27 | NUR ---
CALLED DR HESTER OFFICE AND SPOKE WITH DR HAM WHO IS HOSPITAL CLINIC ASSISTANT FOR DR HESTER. MD RECOMMENDED PT BE EVALUATED IN ER TODAY FOR LOW BP'S AND MEDICATION REVIEW. DR HESTER OFFICE GIVEN PT'S CELL NUMBER AND WILL BE CALLING THE PATIENT TO HAVE THE PATIENT SEEN IN PCP OFFICE THIS WEEK TO REVIEW MEDICATIONS AND COMPLETE A POST HOSPITALIZATION FOLLOW UP AND CONNECT WITH CARDIOLOGY. PT ADVISED OF THIS INFORMATION, DECLINING ER VISIT TODAY. WILL BE EXPECTING CALL FROM DR HESTER FOR F/U. PT ASYMPTOMATIC WITH LOW BP TODAY.
[2020-04-14] MEDS ORDERED: EPCLUSA 200 MG1 EACH PO (10:34)
[2020-04-14 11:03] LABS: BASOPHILS ABSOLUTE AUTO 0.04 K/mm3 (0.00-0.23); BASOPHILS PERCENT AUTO 0 % (0-2); EOSINOPHILS ABSOLUTE AUTO 0.03 K/mm3 (0.00-0.68); EOSINOPHILS PERCENT AUTO 0 % (0-6); Hematocrit 28.8 % (37.0-53.0); Hemoglobin 9.3 g/dL (13.5-17.5); IMMATURE GRAN ABSOLUTE AUTO 0.05 K/mm3 (0.00-0.10); IMMATURE GRAN PERCENT AUTO 1 % (0-1); LYMPHOCYTES ABSOLUTE AUTO 1.66 K/mm3 (0.84-5.20); LYMPHOCYTES PERCENT AUTO 16 % (21-46); MONOCYTES ABSOLUTE AUTO 0.46 K/mm3 (0.16-1.47); MONOCYTES PERCENT AUTO 5 % (4-13); Mean Corpuscular HGB 35.6 pg (26.0-34.0); Mean Corpuscular HGB Conc 32.3 g/dL (31.5-36.5); Mean Corpuscular Volume 110 fL (80-100); Mean Platelet Volume 11.1 fL (9.1-12.4); NEUTROPHILS ABSOLUTE AUTO 7.99 K/mm3 (1.96-9.15); NEUTROPHILS PERCENT AUTO 78 % (41-73); Platelet Count 93 K/mm3 (150-400); RDW Standard Deviation 60.9 fL (35.1-46.3); Red Blood Cell Count 2.61 M/mm3 (4.30-5.90); White Blood Cell Count 10.23 K/mm3 (4.00-11.30)
[2020-04-14 11:24] LABS: Alanine Aminotransfer (ALT/SGP 27 U/L (12-78); Albumin/Globulin Ratio 0.4 (0.8-1.8); Alk Phos 64 U/L (50-136); Anion Gap 5 mmol/L (6-16); Aspartate Aminotrans (AST/SGOT 41 U/L (12-37); Bilirubin, Total 1.2 mg/dL (0.1-1.0); Blood Urea Nitrogen 22 mg/dL (8-24); Bun/Creatinine Ratio 26.4 (12.0-20.0); CO2, Blood 26 mmol/L (21-32); Calcium, Blood 8.1 mg/dL (8.5-10.1); Chloride, Blood 100 mmol/L (98-108); Creatinine, Blood 0.83 mg/dL (0.60-1.20); Globulin, Blood 5.3 g/dL (2.2-4.0); Glomerular Filtration Rate >60 (60-); Glucose, Blood 110 mg/dL (70-99); Potassium, Blood 4.2 mmol/L (3.5-5.5); Sodium, Blood 131 mmol/L (136-145); Total Protein, Blood 7.3 g/dL (6.4-8.2)
--- NOTE | 2020-04-14 11:29 | NUR ---
LAB RESULTS FAXED TO DR FABIAN PER REQUEST
--- NOTE | 2020-04-14 13:45 | NUR ---
REFAXED LAB RESULTS PER DR FABIAN OFFICE REQUEST
[2020-04-26] MEDS ORDERED: SOFOSBUVIR-VEL1 EAC1 PO ×2 (05:46→16:45)
[2020-04-26] MEDS ORDERED: AMLO10 PO (16:41)
[2020-04-27] MEDS ORDERED: VISBIOME 112.51 EACH PO (14:41)
== END 2020-04-14 10:26 | disposition home or self-care (01) ==
LOC: ATC 00:17
PROVIDERS: Internal Medicine Infectious Disease
DX: I33.0 Acute and subacute infective endocarditis (principal); R78.81 Bacteremia; B95.4 Other streptococcus as the cause of diseases classified elsewhere; I10 Essential (primary) hypertension; B19.20 Unspecified viral hepatitis C without hepatic coma; K76.0 Fatty (change of) liver, not elsewhere classified; D69.6 Thrombocytopenia, unspecified; K74.60 Unspecified cirrhosis of liver; Z20.822 Contact with and (suspected) exposure to COVID-19; Z79.2 Long term (current) use of antibiotics; Z79.899 Other long term (current) drug therapy; Z86.718 Personal history of other venous thrombosis and embolism; Z79.01 Long term (current) use of anticoagulants; Z86.711 Personal history of pulmonary embolism
CPT/HCPCS: 80053; 85025; 85651; 86140; 96365; J0696

== ENCOUNTER 2020-04-15 00:15 | Day surgery (SDC) | payer OTHER ==
[~2020-04-15 00:15] MED LIST changes: +EPCLUSA 200 MG1 EACH PO
--- NOTE | 2020-04-15 10:05 | NUR ---
PT BP LOW 96/29 AND 94/25. PT ASYMPTOMATIC. CALLED DR. HESETR OFFICE. SPOKE WITH MELISSA, PAVING RAMMER. SHE STATES SHE HAD BEEN TRYING TO GET A HOLD OF PT REGARDING HIS LOW BP BUT HAS BEEN UNSUCCESFULL AT REACHING HIM. OFFICE IS ADVSING PT TO GO TO THE ED. PT AGREES TO THIS AND TRANSPORTED TO THE ED.
[2020-06-02] MEDS ORDERED: SPIR25 PO ×2 (21:48)
[2020-06-02] MEDS ORDERED: Prinivil10 MG PO ×2 (21:49)
[2020-06-02] MEDS ORDERED: MAGNESIUM OXID500 MG PO ×2 (21:49)
[2020-06-02] MEDS ORDERED: FURO20 PO ×2 (21:49)
[2020-06-02] MEDS ORDERED: XARELTO20 MG PO ×2 (21:50)
[2020-06-02] MEDS ORDERED: ACET325 PO ×2 (21:51)
[2020-06-02] MEDS ORDERED: TRAZ50 PO ×2 (21:51)
[2020-06-02] MEDS ORDERED: FAMO20 PO ×2 (21:51)
[2020-06-02] MEDS ORDERED: BISA10S PR ×2 (21:52)
[2020-06-02] MEDS ORDERED: TRAM50 PO ×2 (21:52)
[2020-06-02] MEDS ORDERED: ONDA4ODT MM ×2 (21:53)
[2020-06-02] MEDS ORDERED: CEFTRIAXONE2 G1 IV ×2 (21:54)
== END 2020-04-15 10:20 | disposition home or self-care (01) ==
LOC: ATC 00:15
DX: M80.08XA Age-related osteoporosis with current pathological fracture, vertebra(e), initial encounter for fracture (principal); I33.9 Acute and subacute endocarditis, unspecified; B95.4 Other streptococcus as the cause of diseases classified elsewhere; K92.2 Gastrointestinal hemorrhage, unspecified; K74.60 Unspecified cirrhosis of liver; F10.10 Alcohol abuse, uncomplicated; B19.20 Unspecified viral hepatitis C without hepatic coma; N17.9 Acute kidney failure, unspecified; I10 Essential (primary) hypertension; E87.1 Hypo-osmolality and hyponatremia; I26.99 Other pulmonary embolism without acute cor pulmonale; I45.81 Long QT syndrome; D69.6 Thrombocytopenia, unspecified; Z86.718 Personal history of other venous thrombosis and embolism; Z79.01 Long term (current) use of anticoagulants
CPT/HCPCS: 96365; J0696

== ENCOUNTER 2020-04-15 10:26 | Emergency (ER) | payer OTHER ==
[~2020-04-15] VITALS: Ht 185.4 cm; Wt 92.1 kg
[2020-04-15 11:17] LABS: BASOPHILS ABSOLUTE AUTO 0.04 K/mm3 (0.00-0.23); BASOPHILS PERCENT AUTO 0 % (0-2); EOSINOPHILS ABSOLUTE AUTO 0.02 K/mm3 (0.00-0.68); EOSINOPHILS PERCENT AUTO 0 % (0-6); Hematocrit 28.4 % (37.0-53.0); Hemoglobin 9.1 g/dL (13.5-17.5); IMMATURE GRAN ABSOLUTE AUTO 0.06 K/mm3 (0.00-0.10); IMMATURE GRAN PERCENT AUTO 1 % (0-1); LYMPHOCYTES ABSOLUTE AUTO 1.76 K/mm3 (0.84-5.20); LYMPHOCYTES PERCENT AUTO 17 % (21-46); MONOCYTES ABSOLUTE AUTO 0.46 K/mm3 (0.16-1.47); MONOCYTES PERCENT AUTO 4 % (4-13); Mean Corpuscular HGB 35.1 pg (26.0-34.0); Mean Corpuscular Volume 110 fL (80-100); NEUTROPHILS ABSOLUTE AUTO 8.03 K/mm3 (1.96-9.15); NEUTROPHILS PERCENT AUTO 77 % (41-73); Platelet Count 87 K/mm3 (150-400); RDW Coefficient Variation 14.9 % (11.7-14.2); RDW Standard Deviation 59.7 fL (35.1-46.3); Red Blood Cell Count 2.59 M/mm3 (4.30-5.90); White Blood Cell Count 10.37 K/mm3 (4.00-11.30)
[2020-04-15 11:35] LABS: Alanine Aminotransfer (ALT/SGP 21 U/L (12-78); Albumin, Blood 2.1 g/dL (3.4-5.0); Albumin/Globulin Ratio 0.4 (0.8-1.8); Alk Phos 63 U/L (50-136); Anion Gap 8 mmol/L (6-16); Aspartate Aminotrans (AST/SGOT 44 U/L (12-37); Bilirubin, Total 1.3 mg/dL (0.1-1.0); Blood Urea Nitrogen 20 mg/dL (8-24); Bun/Creatinine Ratio 25.5 (12.0-20.0); CO2, Blood 23 mmol/L (21-32); Calcium, Blood 8.2 mg/dL (8.5-10.1); Chloride, Blood 101 mmol/L (98-108); Creatinine, Blood 0.79 mg/dL (0.60-1.20); Globulin, Blood 5.2 g/dL (2.2-4.0); Glomerular Filtration Rate >60 (60-); Glucose, Blood 122 mg/dL (70-99); Potassium, Blood 4.2 mmol/L (3.5-5.5); Sodium, Blood 132 mmol/L (136-145); Total Protein, Blood 7.3 g/dL (6.4-8.2)
[2020-04-26] MEDS ORDERED: SOFOSBUVIR-VEL1 EAC1 PO ×2 (05:46→16:45)
[2020-04-26] MEDS ORDERED: AMLO10 PO (16:41)
[2020-04-27] MEDS ORDERED: VISBIOME 112.51 EACH PO (14:41)
== END 2020-04-15 13:04 | disposition home or self-care (01) ==
LOC: ER 10:26
PROVIDERS: Emergency Medicine
DX: I95.9 Hypotension, unspecified (principal); K74.60 Unspecified cirrhosis of liver; I38 Endocarditis, valve unspecified; E87.70 Fluid overload, unspecified; E78.5 Hyperlipidemia, unspecified; I10 Essential (primary) hypertension; Z87.891 Personal history of nicotine dependence
CPT/HCPCS: 71046; 80053; 83880; 85025; 93005; 93010; 99285-25; A9270

== ENCOUNTER 2020-04-16 00:10 | Day surgery (SDC) | payer OTHER ==
[2020-06-02] MEDS ORDERED: SPIR25 PO ×2 (21:48)
[2020-06-02] MEDS ORDERED: Prinivil10 MG PO ×2 (21:49)
[2020-06-02] MEDS ORDERED: MAGNESIUM OXID500 MG PO ×2 (21:49)
[2020-06-02] MEDS ORDERED: FURO20 PO ×2 (21:49)
[2020-06-02] MEDS ORDERED: XARELTO20 MG PO ×2 (21:50)
[2020-06-02] MEDS ORDERED: FAMO20 PO ×2 (21:51)
[2020-06-02] MEDS ORDERED: ACET325 PO ×2 (21:51)
[2020-06-02] MEDS ORDERED: TRAZ50 PO ×2 (21:51)
[2020-06-02] MEDS ORDERED: BISA10S PR ×2 (21:52)
[2020-06-02] MEDS ORDERED: TRAM50 PO ×2 (21:52)
[2020-06-02] MEDS ORDERED: ONDA4ODT MM ×2 (21:53)
[2020-06-02] MEDS ORDERED: CEFTRIAXONE2 G1 IV ×2 (21:54)
== END 2020-04-16 09:03 | disposition home or self-care (01) ==
LOC: ATC 00:10
DX: M80.08XA Age-related osteoporosis with current pathological fracture, vertebra(e), initial encounter for fracture (principal); I33.9 Acute and subacute endocarditis, unspecified; I10 Essential (primary) hypertension; B95.4 Other streptococcus as the cause of diseases classified elsewhere; K92.2 Gastrointestinal hemorrhage, unspecified; K74.60 Unspecified cirrhosis of liver; F10.10 Alcohol abuse, uncomplicated; B19.20 Unspecified viral hepatitis C without hepatic coma; N17.9 Acute kidney failure, unspecified; Z86.718 Personal history of other venous thrombosis and embolism; I26.99 Other pulmonary embolism without acute cor pulmonale; E87.1 Hypo-osmolality and hyponatremia; I45.81 Long QT syndrome; D69.6 Thrombocytopenia, unspecified; Z79.01 Long term (current) use of anticoagulants
CPT/HCPCS: 96365; J0696

== ENCOUNTER 2020-04-17 01:57 | Day surgery (SDC) | payer OTHER ==
[2020-06-02] MEDS ORDERED: SPIR25 PO ×2 (21:48)
[2020-06-02] MEDS ORDERED: FURO20 PO ×2 (21:49)
[2020-06-02] MEDS ORDERED: MAGNESIUM OXID500 MG PO ×2 (21:49)
[2020-06-02] MEDS ORDERED: Prinivil10 MG PO ×2 (21:49)
[2020-06-02] MEDS ORDERED: XARELTO20 MG PO ×2 (21:50)
[2020-06-02] MEDS ORDERED: ACET325 PO ×2 (21:51)
[2020-06-02] MEDS ORDERED: FAMO20 PO ×2 (21:51)
[2020-06-02] MEDS ORDERED: TRAZ50 PO ×2 (21:51)
[2020-06-02] MEDS ORDERED: BISA10S PR ×2 (21:52)
[2020-06-02] MEDS ORDERED: TRAM50 PO ×2 (21:52)
[2020-06-02] MEDS ORDERED: ONDA4ODT MM ×2 (21:53)
[2020-06-02] MEDS ORDERED: CEFTRIAXONE2 G1 IV ×2 (21:54)
== END 2020-04-17 09:18 | disposition home or self-care (01) ==
LOC: ATC 01:57
DX: M80.08XA Age-related osteoporosis with current pathological fracture, vertebra(e), initial encounter for fracture (principal); I33.9 Acute and subacute endocarditis, unspecified; B95.4 Other streptococcus as the cause of diseases classified elsewhere; K92.2 Gastrointestinal hemorrhage, unspecified; K74.60 Unspecified cirrhosis of liver; F10.10 Alcohol abuse, uncomplicated; B19.20 Unspecified viral hepatitis C without hepatic coma; N17.9 Acute kidney failure, unspecified; I10 Essential (primary) hypertension; E87.1 Hypo-osmolality and hyponatremia; I26.99 Other pulmonary embolism without acute cor pulmonale; I45.81 Long QT syndrome; D69.6 Thrombocytopenia, unspecified; Z86.718 Personal history of other venous thrombosis and embolism; Z79.01 Long term (current) use of anticoagulants
CPT/HCPCS: 96365; J0696

== ENCOUNTER 2020-04-18 00:25 | Day surgery (SDC) | payer OTHER ==
--- NOTE | 2020-04-18 09:11 | NUR ---
PT EDUCATED REGARDING LOW BP. PT ASYMPTOMATIC. PCP REVIEWED MEDS AND BP WITH PT TWO DAYS AGO. WILL CONT. TO MONITOR FOR SYMPTOMS OF LOW BP. PT DECLINES ER VISIT
[2020-06-02] MEDS ORDERED: SPIR25 PO ×2 (21:48)
[2020-06-02] MEDS ORDERED: FURO20 PO ×2 (21:49)
[2020-06-02] MEDS ORDERED: MAGNESIUM OXID500 MG PO ×2 (21:49)
[2020-06-02] MEDS ORDERED: Prinivil10 MG PO ×2 (21:49)
[2020-06-02] MEDS ORDERED: XARELTO20 MG PO ×2 (21:50)
[2020-06-02] MEDS ORDERED: TRAZ50 PO ×2 (21:51)
[2020-06-02] MEDS ORDERED: ACET325 PO ×2 (21:51)
[2020-06-02] MEDS ORDERED: FAMO20 PO ×2 (21:51)
[2020-06-02] MEDS ORDERED: TRAM50 PO ×2 (21:52)
[2020-06-02] MEDS ORDERED: BISA10S PR ×2 (21:52)
[2020-06-02] MEDS ORDERED: ONDA4ODT MM ×2 (21:53)
[2020-06-02] MEDS ORDERED: CEFTRIAXONE2 G1 IV ×2 (21:54)
== END 2020-04-18 09:11 | disposition home or self-care (01) ==
LOC: ATC 00:25
DX: M80.08XA Age-related osteoporosis with current pathological fracture, vertebra(e), initial encounter for fracture (principal); I33.9 Acute and subacute endocarditis, unspecified; B95.4 Other streptococcus as the cause of diseases classified elsewhere; K92.2 Gastrointestinal hemorrhage, unspecified; K74.60 Unspecified cirrhosis of liver; F10.10 Alcohol abuse, uncomplicated; B19.20 Unspecified viral hepatitis C without hepatic coma; N17.9 Acute kidney failure, unspecified; I10 Essential (primary) hypertension; E87.1 Hypo-osmolality and hyponatremia; I26.99 Other pulmonary embolism without acute cor pulmonale; I45.81 Long QT syndrome; D69.6 Thrombocytopenia, unspecified; Z86.718 Personal history of other venous thrombosis and embolism; Z79.01 Long term (current) use of anticoagulants
CPT/HCPCS: 96365; J0696

== ENCOUNTER 2020-04-19 01:23 | Day surgery (SDC) | payer OTHER ==
--- NOTE | 2020-04-19 09:28 | NUR ---
MD AWARE OF PT BLOOD PRESSURE, PT ASYMPTOMATIC
[2020-06-02] MEDS ORDERED: SPIR25 PO ×2 (21:48)
[2020-06-02] MEDS ORDERED: FURO20 PO ×2 (21:49)
[2020-06-02] MEDS ORDERED: Prinivil10 MG PO ×2 (21:49)
[2020-06-02] MEDS ORDERED: MAGNESIUM OXID500 MG PO ×2 (21:49)
[2020-06-02] MEDS ORDERED: XARELTO20 MG PO ×2 (21:50)
[2020-06-02] MEDS ORDERED: FAMO20 PO ×2 (21:51)
[2020-06-02] MEDS ORDERED: ACET325 PO ×2 (21:51)
[2020-06-02] MEDS ORDERED: TRAZ50 PO ×2 (21:51)
[2020-06-02] MEDS ORDERED: TRAM50 PO ×2 (21:52)
[2020-06-02] MEDS ORDERED: BISA10S PR ×2 (21:52)
[2020-06-02] MEDS ORDERED: ONDA4ODT MM ×2 (21:53)
[2020-06-02] MEDS ORDERED: CEFTRIAXONE2 G1 IV ×2 (21:54)
== END 2020-04-19 08:55 | disposition home or self-care (01) ==
LOC: ATC 01:23
DX: I35.8 Other nonrheumatic aortic valve disorders (principal); R78.81 Bacteremia; B95.5 Unspecified streptococcus as the cause of diseases classified elsewhere; B19.20 Unspecified viral hepatitis C without hepatic coma; I82.409 Acute embolism and thrombosis of unspecified deep veins of unspecified lower extremity; I26.99 Other pulmonary embolism without acute cor pulmonale; K70.30 Alcoholic cirrhosis of liver without ascites; I10 Essential (primary) hypertension; D69.6 Thrombocytopenia, unspecified
CPT/HCPCS: 96365; J0696

== ENCOUNTER 2020-04-20 00:11 | Day surgery (SDC) | payer OTHER ==
[2020-04-26] MEDS ORDERED: SOFOSBUVIR-VEL1 EAC1 PO ×2 (05:46→16:45)
[2020-04-26] MEDS ORDERED: AMLO10 PO (16:41)
[2020-04-27] MEDS ORDERED: VISBIOME 112.51 EACH PO (14:41)
== END 2020-04-20 09:48 | disposition home or self-care (01) ==
LOC: ATC 00:11
DX: I35.8 Other nonrheumatic aortic valve disorders (principal); I10 Essential (primary) hypertension; Z86.718 Personal history of other venous thrombosis and embolism; Z86.711 Personal history of pulmonary embolism; Z79.01 Long term (current) use of anticoagulants; Z86.19 Personal history of other infectious and parasitic diseases; Z87.891 Personal history of nicotine dependence
CPT/HCPCS: 96365; J0696

== ENCOUNTER 2020-04-21 00:11 | Day surgery (SDC) | payer OTHER ==
[2020-04-21 09:38] LABS: BASOPHILS ABSOLUTE AUTO 0.04 K/mm3 (0.00-0.23); BASOPHILS PERCENT AUTO 0 % (0-2); EOSINOPHILS ABSOLUTE AUTO 0.03 K/mm3 (0.00-0.68); EOSINOPHILS PERCENT AUTO 0 % (0-6); Hematocrit 29.6 % (37.0-53.0); Hemoglobin 9.6 g/dL (13.5-17.5); IMMATURE GRAN ABSOLUTE AUTO 0.06 K/mm3 (0.00-0.10); IMMATURE GRAN PERCENT AUTO 1 % (0-1); LYMPHOCYTES ABSOLUTE AUTO 1.63 K/mm3 (0.84-5.20); LYMPHOCYTES PERCENT AUTO 17 % (21-46); MONOCYTES ABSOLUTE AUTO 0.37 K/mm3 (0.16-1.47); MONOCYTES PERCENT AUTO 4 % (4-13); Mean Corpuscular HGB Conc 32.4 g/dL (31.5-36.5); Mean Corpuscular Volume 108 fL (80-100); Mean Platelet Volume 11.4 fL (9.1-12.4); NEUTROPHILS ABSOLUTE AUTO 7.55 K/mm3 (1.96-9.15); NEUTROPHILS PERCENT AUTO 78 % (41-73); Platelet Count 89 K/mm3 (150-400); RDW Coefficient Variation 14.8 % (11.7-14.2); RDW Standard Deviation 58.2 fL (35.1-46.3); Red Blood Cell Count 2.74 M/mm3 (4.30-5.90); White Blood Cell Count 9.68 K/mm3 (4.00-11.30)
[2020-04-21 09:55] LABS: Alanine Aminotransfer (ALT/SGP 18 U/L (12-78); Albumin/Globulin Ratio 0.4 (0.8-1.8); Alk Phos 67 U/L (50-136); Anion Gap 8 mmol/L (6-16); Aspartate Aminotrans (AST/SGOT 32 U/L (12-37); Bilirubin, Total 0.9 mg/dL (0.1-1.0); Blood Urea Nitrogen 35 mg/dL (8-24); Bun/Creatinine Ratio 32.4 (12.0-20.0); CO2, Blood 22 mmol/L (21-32); Calcium, Blood 8.1 mg/dL (8.5-10.1); Chloride, Blood 100 mmol/L (98-108); Creatinine, Blood 1.08 mg/dL (0.60-1.20); Globulin, Blood 4.9 g/dL (2.2-4.0); Glomerular Filtration Rate >60 (60-); Glucose, Blood 119 mg/dL (70-99); Potassium, Blood 4.1 mmol/L (3.5-5.5); Sodium, Blood 130 mmol/L (136-145); Total Protein, Blood 6.9 g/dL (6.4-8.2)
[2020-04-26] MEDS ORDERED: SOFOSBUVIR-VEL1 EAC1 PO ×2 (05:46→16:45)
[2020-04-26] MEDS ORDERED: AMLO10 PO (16:41)
[2020-04-27] MEDS ORDERED: VISBIOME 112.51 EACH PO (14:41)
== END 2020-04-21 09:41 | disposition home or self-care (01) ==
LOC: ATC 00:11
PROVIDERS: Internal Medicine Infectious Disease
DX: I33.9 Acute and subacute endocarditis, unspecified (principal); R78.81 Bacteremia; B95.4 Other streptococcus as the cause of diseases classified elsewhere; I35.1 Nonrheumatic aortic (valve) insufficiency; K74.60 Unspecified cirrhosis of liver; I10 Essential (primary) hypertension; Z86.718 Personal history of other venous thrombosis and embolism; Z79.2 Long term (current) use of antibiotics; Z79.01 Long term (current) use of anticoagulants; Z79.899 Other long term (current) drug therapy; Z20.822 Contact with and (suspected) exposure to COVID-19
CPT/HCPCS: 80053; 85025; 85651; 86140; 96365; J0696

== ENCOUNTER 2020-04-22 00:22 | Day surgery (SDC) | payer OTHER ==
[2020-04-26] MEDS ORDERED: SOFOSBUVIR-VEL1 EAC1 PO ×2 (05:46→16:45)
[2020-04-26] MEDS ORDERED: AMLO10 PO (16:41)
[2020-04-27] MEDS ORDERED: VISBIOME 112.51 EACH PO (14:41)
== END 2020-04-22 09:29 | disposition home or self-care (01) ==
LOC: ATC 00:22
DX: Z79.2 Long term (current) use of antibiotics (principal); Z79.01 Long term (current) use of anticoagulants; Z79.899 Other long term (current) drug therapy; Z20.822 Contact with and (suspected) exposure to COVID-19
CPT/HCPCS: 96365; J0696

== ENCOUNTER 2020-04-23 00:23 | Day surgery (SDC) | payer OTHER ==
[2020-04-26] MEDS ORDERED: SOFOSBUVIR-VEL1 EAC1 PO ×2 (05:46→16:45)
[2020-04-26] MEDS ORDERED: AMLO10 PO (16:41)
[2020-04-27] MEDS ORDERED: VISBIOME 112.51 EACH PO (14:41)
== END 2020-04-23 09:34 | disposition home or self-care (01) ==
LOC: ATC 00:23
DX: I33.0 Acute and subacute infective endocarditis (principal); R78.81 Bacteremia; B95.4 Other streptococcus as the cause of diseases classified elsewhere; I10 Essential (primary) hypertension; K74.60 Unspecified cirrhosis of liver; D69.6 Thrombocytopenia, unspecified; Z79.2 Long term (current) use of antibiotics; Z79.899 Other long term (current) drug therapy; Z86.718 Personal history of other venous thrombosis and embolism; Z79.01 Long term (current) use of anticoagulants; Z86.711 Personal history of pulmonary embolism; Z20.822 Contact with and (suspected) exposure to COVID-19
CPT/HCPCS: 96365; J0696

== ENCOUNTER 2020-04-24 00:18 | Day surgery (SDC) | payer OTHER ==
--- NOTE | 2020-04-24 12:11 | NUR ---
PT'S REPORTS THAT THEY HAVE HELD ALL OF HIS MEDS TODAY UNTIL THE DOCTOR CALLS THEM BACK.
[2020-04-25] MEDS ORDERED: AMLODIPINE BESY10 MG PO (13:08)
[2020-04-25] MEDS ORDERED: TRAZ50 PO (13:08)
[2020-04-26] MEDS ORDERED: SOFOSBUVIR-VEL1 EAC1 PO ×2 (05:46→16:45)
[2020-04-26] MEDS ORDERED: AMLO10 PO (16:41)
[2020-04-27] MEDS ORDERED: VISBIOME 112.51 EACH PO (14:41)
== END 2020-04-24 09:35 | disposition home or self-care (01) ==
LOC: ATC 00:18
DX: I33.0 Acute and subacute infective endocarditis (principal); M47.812 Spondylosis without myelopathy or radiculopathy, cervical region; M47.816 Spondylosis without myelopathy or radiculopathy, lumbar region; I10 Essential (primary) hypertension; K74.60 Unspecified cirrhosis of liver; Z87.891 Personal history of nicotine dependence; Z95.828 Presence of other vascular implants and grafts; Z79.01 Long term (current) use of anticoagulants; Z86.718 Personal history of other venous thrombosis and embolism
CPT/HCPCS: 96365; J0696

== ENCOUNTER 2020-04-25 01:20 | Day surgery (SDC) | payer OTHER ==
[2020-04-25] MEDS ORDERED: AMLODIPINE BESY10 MG PO (13:08)
[2020-04-25] MEDS ORDERED: TRAZ50 PO (13:08)
[2020-04-26] MEDS ORDERED: FURO40 PO (05:44)
[2020-04-26] MEDS ORDERED: FURO20 PO (05:44)
[2020-04-26] MEDS ORDERED: SOFOSBUVIR-VEL1 EAC1 PO ×3 (05:46→16:45)
[2020-04-26] MEDS ORDERED: ATOR20 PO (15:36)
[2020-04-26] MEDS ORDERED: ASPI81CH PO (15:36)
[2020-04-26] MEDS ORDERED: METO25ER PO (15:37)
[2020-04-26] MEDS ORDERED: RAMI5 PO (15:37)
[2020-04-26] MEDS ORDERED: ESCI10 PO (15:37)
[2020-04-26] MEDS ORDERED: VIT1CAPS12 (15:38)
[2020-04-26] MEDS ORDERED: AMLO10 PO ×2 (16:41)
[2020-06-02] MEDS ORDERED: SPIR25 PO ×2 (21:48)
[2020-06-02] MEDS ORDERED: Prinivil10 MG PO ×2 (21:49)
[2020-06-02] MEDS ORDERED: MAGNESIUM OXID500 MG PO ×2 (21:49)
[2020-06-02] MEDS ORDERED: FURO20 PO ×2 (21:49)
[2020-06-02] MEDS ORDERED: XARELTO20 MG PO ×2 (21:50)
[2020-06-02] MEDS ORDERED: ACET325 PO ×2 (21:51)
[2020-06-02] MEDS ORDERED: TRAZ50 PO ×2 (21:51)
[2020-06-02] MEDS ORDERED: FAMO20 PO ×2 (21:51)
[2020-06-02] MEDS ORDERED: TRAM50 PO ×2 (21:52)
[2020-06-02] MEDS ORDERED: BISA10S PR ×2 (21:52)
[2020-06-02] MEDS ORDERED: ONDA4ODT MM ×2 (21:53)
[2020-06-02] MEDS ORDERED: CEFTRIAXONE2 G1 IV ×2 (21:54)
== END 2020-04-25 22:34 | disposition home or self-care (01) ==
LOC: ATC 01:20
DX: M80.08XA Age-related osteoporosis with current pathological fracture, vertebra(e), initial encounter for fracture (principal); I33.9 Acute and subacute endocarditis, unspecified; B95.4 Other streptococcus as the cause of diseases classified elsewhere; K92.2 Gastrointestinal hemorrhage, unspecified; K74.60 Unspecified cirrhosis of liver; F10.10 Alcohol abuse, uncomplicated; B19.20 Unspecified viral hepatitis C without hepatic coma; N17.9 Acute kidney failure, unspecified; I10 Essential (primary) hypertension; E87.0 Hyperosmolality and hypernatremia; I26.99 Other pulmonary embolism without acute cor pulmonale; I45.81 Long QT syndrome; D69.6 Thrombocytopenia, unspecified; Z86.718 Personal history of other venous thrombosis and embolism; Z79.01 Long term (current) use of anticoagulants
CPT/HCPCS: J0696

== ENCOUNTER 2020-04-25 07:04 | Inpatient (IN) | payer OTHER ==
[~2020-04-25] VITALS: Ht 185.4 cm; Wt 83.2 kg
[2020-04-25 07:33] LABS: BASOPHILS ABSOLUTE AUTO 0.03 K/mm3 (0.00-0.23); BASOPHILS PERCENT AUTO 0 % (0-2); EOSINOPHILS ABSOLUTE AUTO 0.04 K/mm3 (0.00-0.68); EOSINOPHILS PERCENT AUTO 1 % (0-6); Hematocrit 27.5 % (37.0-53.0); Hemoglobin 9.1 g/dL (13.5-17.5); IMMATURE GRAN ABSOLUTE AUTO 0.03 K/mm3 (0.00-0.10); IMMATURE GRAN PERCENT AUTO 0 % (0-1); LYMPHOCYTES ABSOLUTE AUTO 1.45 K/mm3 (0.84-5.20); LYMPHOCYTES PERCENT AUTO 21 % (21-46); MONOCYTES ABSOLUTE AUTO 0.34 K/mm3 (0.16-1.47); MONOCYTES PERCENT AUTO 5 % (4-13); Mean Corpuscular HGB 35.5 pg (26.0-34.0); Mean Corpuscular HGB Conc 33.1 g/dL (31.5-36.5); Mean Corpuscular Volume 107 fL (80-100); Mean Platelet Volume 10.8 fL (9.1-12.4); NEUTROPHILS PERCENT AUTO 72 % (41-73); Platelet Count 81 K/mm3 (150-400); RDW Coefficient Variation 14.5 % (11.7-14.2); RDW Standard Deviation 57.1 fL (35.1-46.3); Red Blood Cell Count 2.56 M/mm3 (4.30-5.90); White Blood Cell Count 6.79 K/mm3 (4.00-11.30)
[2020-04-25 07:48] LABS: Alanine Aminotransfer (ALT/SGP 17 U/L (12-78); Albumin/Globulin Ratio 0.4 (0.8-1.8); Alk Phos 62 U/L (50-136); Anion Gap 9 mmol/L (6-16); Aspartate Aminotrans (AST/SGOT 32 U/L (12-37); Bilirubin, Total 1.1 mg/dL (0.1-1.0); Blood Urea Nitrogen 33 mg/dL (8-24); Bun/Creatinine Ratio 42.3 (12.0-20.0); CO2, Blood 22 mmol/L (21-32); Calcium, Blood 8.6 mg/dL (8.5-10.1); Chloride, Blood 101 mmol/L (98-108); Creatinine, Blood 0.78 mg/dL (0.60-1.20); Globulin, Blood 5.1 g/dL (2.2-4.0); Glomerular Filtration Rate >60 (60-); Glucose, Blood 122 mg/dL (70-99); Potassium, Blood 4.2 mmol/L (3.5-5.5); Sodium, Blood 132 mmol/L (136-145); Total Protein, Blood 7.1 g/dL (6.4-8.2)
[2020-04-25] MEDS ORDERED: AMLODIPINE BESY10 MG PO (13:08)
[2020-04-25] MEDS ORDERED: TRAZ50 PO (13:08)
[2020-04-25 13:42] LABS: Influenza A, PCR NEGATIVE (NEGATIVE); Influenza B, PCR NEGATIVE (NEGATIVE); Resp Syncytial Virus, PCR NEGATIVE (NEGATIVE); SARS-Cov-2 (COVID-19) PCR, MMC NEGATIVE (NEGATIVE)
[2020-04-26 05:18] LABS: Hematocrit 29.5 % (37.0-53.0); Hemoglobin 9.4 g/dL (13.5-17.5); Mean Corpuscular HGB 34.9 pg (26.0-34.0); Mean Corpuscular HGB Conc 31.9 g/dL (31.5-36.5); Mean Corpuscular Volume 110 fL (80-100); Mean Platelet Volume 10.7 fL (9.1-12.4); Platelet Count 76 K/mm3 (150-400); RDW Coefficient Variation 14.6 % (11.7-14.2); RDW Standard Deviation 58.5 fL (35.1-46.3); Red Blood Cell Count 2.69 M/mm3 (4.30-5.90); White Blood Cell Count 7.12 K/mm3 (4.00-11.30)
[2020-04-26 05:44] LABS: Anion Gap 6 mmol/L (6-16); Blood Urea Nitrogen 29 mg/dL (8-24); Bun/Creatinine Ratio 38.4 (12.0-20.0); CO2, Blood 22 mmol/L (21-32); Calcium, Blood 8.5 mg/dL (8.5-10.1); Chloride, Blood 104 mmol/L (98-108); Creatinine, Blood 0.76 mg/dL (0.60-1.20); Glomerular Filtration Rate >60 (60-); Glucose, Blood 108 mg/dL (70-99); Potassium, Blood 4.8 mmol/L (3.5-5.5); Sodium, Blood 132 mmol/L (136-145)
[2020-04-26] MEDS ORDERED: FURO20 PO (05:44)
[2020-04-26] MEDS ORDERED: FURO40 PO (05:44)
[2020-04-26] MEDS ORDERED: SOFOSBUVIR-VEL1 EAC1 PO ×3 (05:46→16:45)
--- NOTE | 2020-04-26 07:40 | NUR ---
SHIFT SUMMARY: PATIENT IS A&O TO SELF AND PLACE. REPORTS CHRONIC BACK PAIN AND IS MEDCATED WITH PRN ULTRAM. VOIDED INDEPENDANTLY IN URINAL A TEA COLORD URINE. BED MOBILITY IS MINIMAL, PATIENT IS ASSISTED WITH REPOSITIONING SIDE TO SIDE. +4 BLE EDEMA IS OBSERVED. POOR APPETITE, ATE A FEW BITED OF JELLO FOR DINNER.
[2020-04-26] MEDS ORDERED: ATOR20 PO (15:36)
[2020-04-26] MEDS ORDERED: ASPI81CH PO (15:36)
[2020-04-26] MEDS ORDERED: RAMI5 PO (15:37)
[2020-04-26] MEDS ORDERED: ESCI10 PO (15:37)
[2020-04-26] MEDS ORDERED: METO25ER PO (15:37)
[2020-04-26] MEDS ORDERED: VIT1CAPS12 (15:38)
[2020-04-26] MEDS ORDERED: AMLO10 PO ×2 (16:41)
--- NOTE | 2020-04-26 16:52 | NUR ---
CHARTED ON WRONG PATIENT. ACCIDENTALLY DC'D ALL MEDS FROM MED REC THINKING IT WAS A DIFFERENT PATIENT. RE-ENTERED ALL PREVIOUS MEDS.
--- NOTE | 2020-04-26 19:56 | NUR ---
SHIFT SUMMARY PT A/O X2 AND EXPERIENCES EPISODES OF CONFUSION. PT HAS A COMPLEX PMH AND CAME IN FOR INCREASING WEAKNESS. PT APPEARS TO BE QUITE WEAK AND HAS BEEN BED BOUND THIS SHIFT. Q2 TURN AND USES THE URINAL IND IN BED. VSS BUT BP ON THE LOW SIDE. HAD MILD HALLUCINATIONS THIS PM. REPORT GIVEN TO COMMUNITY SPECIALIST RN.
--- NOTE | 2020-04-27 02:42 | NUR ---
: Patient has had only 75 mls out since 1899, voided 75 ml dark tea color urine. Bladder scan is inconclusive due to acites. Patient has no feeling of bladder pressure. Dr Bear is notified. No new orders, continue to monitor urine output and pass along to day shift.
--- NOTE | 2020-04-27 07:47 | NUR ---
SHIFT SUMMARY: PATIENT IS A&OX2, POOR APPETITE BUT HAS DRANK 4 MILKS THIS SHIFT. LUNGS HAVE EXPIRATORY WHEEZES AND FINE CRACKLES AT THE BASES AND IS SOB AT REST. UNABLE TO PLACE MARLI HOSE DUE TO BLE EDEMA AND BLISTERS STARTING TO FORM. PATIENT HAS DENIED NEED OF PAIN MEDICATION. PICC LINE IN BAKARI IS PATENT WITH BLOOD RETURN, NS AT TKO.
[2020-04-27 14:36] LABS: Influenza A, PCR Negative (NEGATIVE); Influenza B, PCR Negative (NEGATIVE); Resp Syncytial Virus, PCR Negative (NEGATIVE); SARS-Cov-2 (COVID-19) PCR, MMC Negative (NEGATIVE)
[2020-04-27] MEDS ORDERED: VISBIOME 112.51 EACH PO ×2 (14:41)
--- NOTE | 2020-04-27 16:49 | NUR ---
PT DISCHARGED FROM THE UNIT. REPORT CALLED TO [facility]RAKE. SPOKE WITH DENIA. HOME MEDICATIONS SENT WITH PT. PICC LINE LEFT IN PLACE. PT LEFT AT 1600 WITH TRANSPORT. AT BEDSIDE WHEN TRANSPORT PICKED UP.
--- NOTE | 2020-04-27 17:53 | NUR ---
Spiritual care note: Mr. Muir admitted he was fearful that he is dying. She had enormous remorse and was tearful throughout conversation. At times, he is difficult to understand as he seems quite weak. We spoke about God's [place] and undying love for us. We spoke about redemption and second chances. He asked me to pray for him. He states he is willing to work towards a healthy life-style and do whatever he can to survive. He is being d/c to rehab today.
[2020-06-02] MEDS ORDERED: SPIR25 PO ×2 (21:48)
[2020-06-02] MEDS ORDERED: FURO20 PO ×2 (21:49)
[2020-06-02] MEDS ORDERED: MAGNESIUM OXID500 MG PO ×2 (21:49)
[2020-06-02] MEDS ORDERED: Prinivil10 MG PO ×2 (21:49)
[2020-06-02] MEDS ORDERED: XARELTO20 MG PO ×2 (21:50)
[2020-06-02] MEDS ORDERED: TRAZ50 PO ×2 (21:51)
[2020-06-02] MEDS ORDERED: ACET325 PO ×2 (21:51)
[2020-06-02] MEDS ORDERED: FAMO20 PO ×2 (21:51)
[2020-06-02] MEDS ORDERED: TRAM50 PO ×2 (21:52)
[2020-06-02] MEDS ORDERED: BISA10S PR ×2 (21:52)
[2020-06-02] MEDS ORDERED: ONDA4ODT MM ×2 (21:53)
[2020-06-02] MEDS ORDERED: CEFTRIAXONE2 G1 IV ×2 (21:54)
== END 2020-04-27 15:59 | DRG 289 ==
LOC: ER 07:04 → ERHOLD 16:41 → MEDS 18:16 → ENPENDDIS 04-27 15:12 → MEDS 04-27 15:59
PROVIDERS: Emergency Medicine; ADMIT Family Medicine
DX: I33.0 Acute and subacute infective endocarditis (principal); E87.1 Hypo-osmolality and hyponatremia; Z87.891 Personal history of nicotine dependence; D69.6 Thrombocytopenia, unspecified; E88.09 Other disorders of plasma-protein metabolism, not elsewhere classified; B18.2 Chronic viral hepatitis C; Z86.718 Personal history of other venous thrombosis and embolism; Z86.711 Personal history of pulmonary embolism; I10 Essential (primary) hypertension; Z20.822 Contact with and (suspected) exposure to COVID-19
CPT/HCPCS: 0241U; 36415; 72100; 80048; 80053; 83735; 84145; 85025; 85027; 85651; 86140; 93005; 93010; 97110; 97162; 97530; 99284-25; A9270; J0696; J7030

== ENCOUNTER 2020-04-26 00:16 | Day surgery (SDC) | payer OTHER ==
[~2020-04-26 00:16] MED LIST changes: +TRAZ50 PO
[2020-04-26] MEDS ORDERED: FURO20 PO (05:44)
[2020-04-26] MEDS ORDERED: FURO40 PO (05:44)
[2020-04-26] MEDS ORDERED: SOFOSBUVIR-VEL1 EAC1 PO ×3 (05:46→16:45)
[2020-04-26] MEDS ORDERED: ATOR20 PO (15:36)
[2020-04-26] MEDS ORDERED: ASPI81CH PO (15:36)
[2020-04-26] MEDS ORDERED: RAMI5 PO (15:37)
[2020-04-26] MEDS ORDERED: METO25ER PO (15:37)
[2020-04-26] MEDS ORDERED: ESCI10 PO (15:37)
[2020-04-26] MEDS ORDERED: VIT1CAPS12 (15:38)
[2020-04-26] MEDS ORDERED: AMLO10 PO ×2 (16:41)
[2020-04-27] MEDS ORDERED: VISBIOME 112.51 EACH PO ×2 (14:41)
[2020-06-02] MEDS ORDERED: SPIR25 PO ×2 (21:48)
[2020-06-02] MEDS ORDERED: MAGNESIUM OXID500 MG PO ×2 (21:49)
[2020-06-02] MEDS ORDERED: Prinivil10 MG PO ×2 (21:49)
[2020-06-02] MEDS ORDERED: FURO20 PO ×2 (21:49)
[2020-06-02] MEDS ORDERED: XARELTO20 MG PO ×2 (21:50)
[2020-06-02] MEDS ORDERED: TRAZ50 PO ×2 (21:51)
[2020-06-02] MEDS ORDERED: FAMO20 PO ×2 (21:51)
[2020-06-02] MEDS ORDERED: ACET325 PO ×2 (21:51)
[2020-06-02] MEDS ORDERED: BISA10S PR ×2 (21:52)
[2020-06-02] MEDS ORDERED: TRAM50 PO ×2 (21:52)
[2020-06-02] MEDS ORDERED: ONDA4ODT MM ×2 (21:53)
[2020-06-02] MEDS ORDERED: CEFTRIAXONE2 G1 IV ×2 (21:54)
== END 2020-04-26 22:44 | disposition home or self-care (01) ==
LOC: ATC 00:16
DX: I33.9 Acute and subacute endocarditis, unspecified (principal); K74.60 Unspecified cirrhosis of liver; B19.20 Unspecified viral hepatitis C without hepatic coma; K31.89 Other diseases of stomach and duodenum; K64.9 Unspecified hemorrhoids; K63.5 Polyp of colon; Z86.718 Personal history of other venous thrombosis and embolism; Z79.01 Long term (current) use of anticoagulants; Z86.711 Personal history of pulmonary embolism; I10 Essential (primary) hypertension

== ENCOUNTER 2020-04-27 00:10 | Day surgery (SDC) | payer OTHER ==
[~2020-04-27 00:10] MED LIST changes: +AMLO10 PO; +ASPI81CH PO; +ATOR20 PO; +ESCI10 PO; +FURO20 PO; +FURO40 PO; +METO25ER PO; +RAMI5 PO; +VIT1CAPS12
[2020-04-27] MEDS ORDERED: VISBIOME 112.51 EACH PO ×2 (14:41)
[2020-06-02] MEDS ORDERED: SPIR25 PO ×2 (21:48)
[2020-06-02] MEDS ORDERED: MAGNESIUM OXID500 MG PO ×2 (21:49)
[2020-06-02] MEDS ORDERED: Prinivil10 MG PO ×2 (21:49)
[2020-06-02] MEDS ORDERED: FURO20 PO ×2 (21:49)
[2020-06-02] MEDS ORDERED: XARELTO20 MG PO ×2 (21:50)
[2020-06-02] MEDS ORDERED: TRAZ50 PO ×2 (21:51)
[2020-06-02] MEDS ORDERED: ACET325 PO ×2 (21:51)
[2020-06-02] MEDS ORDERED: FAMO20 PO ×2 (21:51)
[2020-06-02] MEDS ORDERED: BISA10S PR ×2 (21:52)
[2020-06-02] MEDS ORDERED: TRAM50 PO ×2 (21:52)
[2020-06-02] MEDS ORDERED: ONDA4ODT MM ×2 (21:53)
[2020-06-02] MEDS ORDERED: CEFTRIAXONE2 G1 IV ×2 (21:54)
== END 2020-04-27 22:40 | disposition home or self-care (01) ==
LOC: ATC 00:10
DX: I33.9 Acute and subacute endocarditis, unspecified (principal); K74.60 Unspecified cirrhosis of liver; B19.20 Unspecified viral hepatitis C without hepatic coma; K31.89 Other diseases of stomach and duodenum; K64.9 Unspecified hemorrhoids; K63.5 Polyp of colon; I10 Essential (primary) hypertension; Z86.718 Personal history of other venous thrombosis and embolism; Z79.01 Long term (current) use of anticoagulants; Z86.711 Personal history of pulmonary embolism

== ENCOUNTER 2020-04-29 00:05 | Day surgery (SDC) | payer OTHER ==
[~2020-04-29 00:05] MED LIST changes: +VISBIOME 112.51 EACH PO
== END 2020-04-29 22:36 | disposition home or self-care (01) ==
LOC: ATC 00:05
DX: I33.0 Acute and subacute infective endocarditis (principal); I35.1 Nonrheumatic aortic (valve) insufficiency; I10 Essential (primary) hypertension; Z86.718 Personal history of other venous thrombosis and embolism; Z79.01 Long term (current) use of anticoagulants

== ENCOUNTER → 2020-05-20 | Outpatient (CLI) | payer OTHER ==
[~2020-05-20] MED LIST changes: +BISA10S PR; +FAMO20 PO; +MAGNESIUM OXID500 MG PO; +MIRTAZAPINE7.5 M1 PO; +SPIR25 PO; +TRAM50 PO; +XARELTO20 MG PO
[2020-05-20 14:32] LABS: BASOPHILS ABSOLUTE AUTO 0.01 K/mm3 (0.00-0.23); BASOPHILS PERCENT AUTO 1 % (0-2); EOSINOPHILS PERCENT AUTO 0 % (0-6); Hematocrit 27.5 % (37.0-53.0); Hemoglobin 8.9 g/dL (13.5-17.5); Mean Corpuscular HGB 34.6 pg (26.0-34.0); Mean Corpuscular HGB Conc 32.4 g/dL (31.5-36.5); Mean Corpuscular Volume 107 fL (80-100); Mean Platelet Volume 10.9 fL (9.1-12.4); Platelet Count 65 K/mm3 (150-400); RDW Coefficient Variation 13.3 % (11.7-14.2); RDW Standard Deviation 52.7 fL (35.1-46.3); Red Blood Cell Count 2.57 M/mm3 (4.30-5.90); White Blood Cell Count 1.35 K/mm3 (4.00-11.30)
[2020-05-20 14:36] LABS: IMMATURE GRAN PERCENT AUTO 0 % (0-1); LYMPHOCYTES ABSOLUTE AUTO 1.19 K/mm3 (0.84-5.20); LYMPHOCYTES PERCENT AUTO 88 % (21-46); MONOCYTES ABSOLUTE AUTO 0.06 K/mm3 (0.16-1.47); MONOCYTES PERCENT AUTO 4 % (4-13); NEUTROPHILS ABSOLUTE AUTO 0.09 K/mm3 (1.96-9.15); NEUTROPHILS PERCENT AUTO 7 % (41-73)
== END | disposition home or self-care (01) ==
LOC: EDSTATUS 11:19 → LAB RH 14:22
PROVIDERS: Family Medicine
DX: K70.31 Alcoholic cirrhosis of liver with ascites (principal); I33.0 Acute and subacute infective endocarditis
CPT/HCPCS: 85025; 85730

== ENCOUNTER → 2020-05-21 | Outpatient (CLI) | payer OTHER ==
[2020-05-21 13:15] LABS: International Normalized Ratio 1.36; Prothrombin Time Results 14.3 Sec (9.7-11.5)
[2020-05-21 13:21] LABS: Alanine Aminotransfer (ALT/SGP 11 U/L (12-78); Albumin, Blood 1.9 g/dL (3.4-5.0); Albumin/Globulin Ratio 0.3 (0.8-1.8); Alk Phos 65 U/L (50-136); Anion Gap 7 mmol/L (6-16); Aspartate Aminotrans (AST/SGOT 23 U/L (12-37); Bilirubin, Total 0.7 mg/dL (0.1-1.0); Blood Urea Nitrogen 51 mg/dL (8-24); Bun/Creatinine Ratio 46.8 (12.0-20.0); CO2, Blood 21 mmol/L (21-32); Calcium, Blood 9.2 mg/dL (8.5-10.1); Chloride, Blood 111 mmol/L (98-108); Creatinine, Blood 1.09 mg/dL (0.60-1.20); Globulin, Blood 5.7 g/dL (2.2-4.0); Glomerular Filtration Rate >60 (60-); Glucose, Blood 168 mg/dL (70-99); Potassium, Blood 4.3 mmol/L (3.5-5.5); Sodium, Blood 139 mmol/L (136-145); Total Protein, Blood 7.6 g/dL (6.4-8.2)
== END | disposition home or self-care (01) ==
LOC: EDSTATUS 11:19 → LAB RH 12:43
PROVIDERS: Family Medicine
DX: I33.0 Acute and subacute infective endocarditis (principal)
CPT/HCPCS: 80053; 85610; 85651; 85730

== ENCOUNTER → 2020-05-28 | Outpatient (CLI) | payer OTHER ==
[2020-05-28 11:09] LABS: Alanine Aminotransfer (ALT/SGP 7 U/L (12-78); Albumin, Blood 1.6 g/dL (3.4-5.0); Albumin/Globulin Ratio 0.3 (0.8-1.8); Alk Phos 63 U/L (50-136); Anion Gap 6 mmol/L (6-16); Aspartate Aminotrans (AST/SGOT 16 U/L (12-37); Bilirubin, Total 0.7 mg/dL (0.1-1.0); Blood Urea Nitrogen 35 mg/dL (8-24); Bun/Creatinine Ratio 43.3 (12.0-20.0); CO2, Blood 23 mmol/L (21-32); Chloride, Blood 118 mmol/L (98-108); Creatinine, Blood 0.81 mg/dL (0.60-1.20); Globulin, Blood 4.7 g/dL (2.2-4.0); Glomerular Filtration Rate >60 (60-); Glucose, Blood 83 mg/dL (70-99); Potassium, Blood 3.9 mmol/L (3.5-5.5); Sodium, Blood 147 mmol/L (136-145); Total Protein, Blood 6.3 g/dL (6.4-8.2)
== END ==
LOC: LAB RH 08:30 → EDSTATUS 11:20
PROVIDERS: Family Medicine
DX: E72.20 Disorder of urea cycle metabolism, unspecified (principal); Z88.8 Allergy status to other drugs, medicaments and biological substances
CPT/HCPCS: 80053; 82140; 86140

== ENCOUNTER → 2020-05-29 | Outpatient (CLI) | payer OTHER ==
[2020-05-29 15:44] LABS: BASOPHILS ABSOLUTE AUTO 0.03 K/mm3 (0.00-0.23); BASOPHILS PERCENT AUTO 1 % (0-2); EOSINOPHILS PERCENT AUTO 0 % (0-6); Hematocrit 35.6 % (37.0-53.0); Hemoglobin 11.2 g/dL (13.5-17.5); IMMATURE GRAN ABSOLUTE AUTO 0.01 K/mm3 (0.00-0.10); IMMATURE GRAN PERCENT AUTO 0 % (0-1); LYMPHOCYTES PERCENT AUTO 38 % (21-46); MONOCYTES ABSOLUTE AUTO 0.16 K/mm3 (0.16-1.47); MONOCYTES PERCENT AUTO 4 % (4-13); Mean Corpuscular HGB 33.2 pg (26.0-34.0); Mean Corpuscular HGB Conc 31.5 g/dL (31.5-36.5); Mean Corpuscular Volume 106 fL (80-100); Mean Platelet Volume 10.6 fL (9.1-12.4); NEUTROPHILS ABSOLUTE AUTO 2.26 K/mm3 (1.96-9.15); NEUTROPHILS PERCENT AUTO 57 % (41-73); Platelet Count 72 K/mm3 (150-400); RDW Coefficient Variation 14.4 % (11.7-14.2); RDW Standard Deviation 55.3 fL (35.1-46.3); Red Blood Cell Count 3.37 M/mm3 (4.30-5.90); White Blood Cell Count 3.96 K/mm3 (4.00-11.30)
[2020-06-01 14:08] LABS: HEPATITIS C QUANTITATION HCV Not Detected IU/mL (.)
== END ==
LOC: EDSTATUS 11:21 → LAB RH 14:35
PROVIDERS: Family Medicine
DX: I33.0 Acute and subacute infective endocarditis (principal); K70.31 Alcoholic cirrhosis of liver with ascites; R26.89 Other abnormalities of gait and mobility; I10 Essential (primary) hypertension; R41.841 Cognitive communication deficit; M62.81 Muscle weakness (generalized); F19.90 Other psychoactive substance use, unspecified, uncomplicated; M47.16 Other spondylosis with myelopathy, lumbar region; B18.2 Chronic viral hepatitis C; E46 Unspecified protein-calorie malnutrition
CPT/HCPCS: 85025; 86803; 87522

== ENCOUNTER 2020-06-01 09:02 | Day surgery (SDC) | payer OTHER ==
[~2020-06-01 09:02] MED LIST changes: -BISA10S PR; -FAMO20 PO; -MAGNESIUM OXID500 MG PO; -MIRTAZAPINE7.5 M1 PO; -SPIR25 PO; -TRAM50 PO; -XARELTO20 MG PO
[2020-06-02] MEDS ORDERED: SPIR25 PO (21:48)
[2020-06-02] MEDS ORDERED: Prinivil10 MG PO (21:49)
[2020-06-02] MEDS ORDERED: FURO20 PO (21:49)
[2020-06-02] MEDS ORDERED: MAGNESIUM OXID500 MG PO (21:49)
[2020-06-02] MEDS ORDERED: MIRTAZAPINE7.5 M1 PO (21:50)
[2020-06-02] MEDS ORDERED: XARELTO20 MG PO (21:50)
[2020-06-02] MEDS ORDERED: TRAZ50 PO (21:51)
[2020-06-02] MEDS ORDERED: ACET325 PO (21:51)
[2020-06-02] MEDS ORDERED: FAMO20 PO (21:51)
[2020-06-02] MEDS ORDERED: BISA10S PR (21:52)
[2020-06-02] MEDS ORDERED: TRAM50 PO (21:52)
[2020-06-02] MEDS ORDERED: ONDA4ODT MM (21:53)
[2020-06-02] MEDS ORDERED: CEFTRIAXONE2 G1 IV (21:54)
== END 2020-06-01 22:52 | disposition home or self-care (01) ==
LOC: US 09:02
DX: K70.31 Alcoholic cirrhosis of liver with ascites (principal)

== ENCOUNTER 2020-06-02 13:56 | Emergency (ER) | payer OTHER ==
[~2020-06-02] VITALS: Ht 185.4 cm; Wt 113.4 kg
[2020-06-02 14:40] LABS: BASOPHILS ABSOLUTE AUTO 0.03 K/mm3 (0.00-0.23); BASOPHILS PERCENT AUTO 1 % (0-2); EOSINOPHILS PERCENT AUTO 0 % (0-6); Hematocrit 34.6 % (37.0-53.0); IMMATURE GRAN ABSOLUTE AUTO 0.01 K/mm3 (0.00-0.10); IMMATURE GRAN PERCENT AUTO 0 % (0-1); LYMPHOCYTES PERCENT AUTO 31 % (21-46); MONOCYTES ABSOLUTE AUTO 0.21 K/mm3 (0.16-1.47); MONOCYTES PERCENT AUTO 4 % (4-13); Mean Corpuscular HGB 33.5 pg (26.0-34.0); Mean Corpuscular HGB Conc 31.8 g/dL (31.5-36.5); Mean Corpuscular Volume 106 fL (80-100); Mean Platelet Volume 10.8 fL (9.1-12.4); NEUTROPHILS ABSOLUTE AUTO 3.27 K/mm3 (1.96-9.15); NEUTROPHILS PERCENT AUTO 64 % (41-73); Platelet Count 72 K/mm3 (150-400); RDW Coefficient Variation 14.8 % (11.7-14.2); RDW Standard Deviation 57.2 fL (35.1-46.3); Red Blood Cell Count 3.28 M/mm3 (4.30-5.90); White Blood Cell Count 5.12 K/mm3 (4.00-11.30)
[2020-06-02 14:55] LABS: International Normalized Ratio 2.08; Prothrombin Time Results 21.4 Sec (9.7-11.5)
[2020-06-02 14:58] LABS: Alanine Aminotransfer (ALT/SGP 9 U/L (12-78); Albumin, Blood 2.2 g/dL (3.4-5.0); Albumin/Globulin Ratio 0.4 (0.8-1.8); Alk Phos 74 U/L (50-136); Anion Gap 7 mmol/L (6-16); Aspartate Aminotrans (AST/SGOT 25 U/L (12-37); Blood Urea Nitrogen 30 mg/dL (8-24); Bun/Creatinine Ratio 25.2 (12.0-20.0); CO2, Blood 24 mmol/L (21-32); Calcium, Blood 9.3 mg/dL (8.5-10.1); Chloride, Blood 107 mmol/L (98-108); Creatinine, Blood 1.19 mg/dL (0.60-1.20); Globulin, Blood 5.8 g/dL (2.2-4.0); Glomerular Filtration Rate >60 (60-); Glucose, Blood 112 mg/dL (70-99); Potassium, Blood 4.7 mmol/L (3.5-5.5); Sodium, Blood 138 mmol/L (136-145)
--- NOTE | 2020-06-02 17:48 | NUR ---
PT LEFT WITH ER STAFF TO RETURN TO ER FOR DISCHARGE. PICC LINE BLED THROUGH DRESSING. CHANGED DRESSING AND PLACED 2X2'S ON SITE AND NEW WINDOW DRESSING. WRAPPED HIS PICC LINE WITH COBAN TO HELP WITH BLEEDING.
[2020-06-02] MEDS ORDERED: SPIR25 PO (21:48)
[2020-06-02] MEDS ORDERED: Prinivil10 MG PO (21:49)
[2020-06-02] MEDS ORDERED: MAGNESIUM OXID500 MG PO (21:49)
[2020-06-02] MEDS ORDERED: FURO20 PO (21:49)
[2020-06-02] MEDS ORDERED: XARELTO20 MG PO (21:50)
[2020-06-02] MEDS ORDERED: MIRTAZAPINE7.5 M1 PO (21:50)
[2020-06-02] MEDS ORDERED: FAMO20 PO (21:51)
[2020-06-02] MEDS ORDERED: ACET325 PO (21:51)
[2020-06-02] MEDS ORDERED: TRAZ50 PO (21:51)
[2020-06-02] MEDS ORDERED: TRAM50 PO (21:52)
[2020-06-02] MEDS ORDERED: BISA10S PR (21:52)
[2020-06-02] MEDS ORDERED: ONDA4ODT MM (21:53)
[2020-06-02] MEDS ORDERED: CEFTRIAXONE2 G1 IV (21:54)
== END 2020-06-02 15:56 | disposition home or self-care (01) ==
LOC: ER 13:56
PROVIDERS: Emergency Medicine
DX: T82.524A Displacement of infusion catheter, initial encounter (principal); Z79.899 Other long term (current) drug therapy
CPT/HCPCS: 36415; 36573; 80053; 82140; 85025; 85610; 99284-25; C1751

== ENCOUNTER 2020-06-02 18:51 | Inpatient (IN) | payer OTHER ==
[~2020-06-02] VITALS: Ht 172.7 cm; Wt 83.5 kg
[2020-06-02 19:33] LABS: BASOPHILS ABSOLUTE AUTO 0.03 K/mm3 (0.00-0.23); BASOPHILS PERCENT AUTO 1 % (0-2); EOSINOPHILS PERCENT AUTO 0 % (0-6); Hematocrit 28.8 % (37.0-53.0); Hemoglobin 9.3 g/dL (13.5-17.5); IMMATURE GRAN ABSOLUTE AUTO 0.01 K/mm3 (0.00-0.10); IMMATURE GRAN PERCENT AUTO 0 % (0-1); LYMPHOCYTES ABSOLUTE AUTO 1.87 K/mm3 (0.84-5.20); LYMPHOCYTES PERCENT AUTO 38 % (21-46); MONOCYTES PERCENT AUTO 4 % (4-13); Mean Corpuscular HGB 34.2 pg (26.0-34.0); Mean Corpuscular HGB Conc 32.3 g/dL (31.5-36.5); Mean Corpuscular Volume 106 fL (80-100); Mean Platelet Volume 10.8 fL (9.1-12.4); NEUTROPHILS ABSOLUTE AUTO 2.83 K/mm3 (1.96-9.15); NEUTROPHILS PERCENT AUTO 57 % (41-73); Platelet Count 60 K/mm3 (150-400); RDW Coefficient Variation 14.8 % (11.7-14.2); RDW Standard Deviation 56.7 fL (35.1-46.3); Red Blood Cell Count 2.72 M/mm3 (4.30-5.90); White Blood Cell Count 4.94 K/mm3 (4.00-11.30)
[2020-06-02 19:59] LABS: Alanine Aminotransfer (ALT/SGP 9 U/L (12-78); Albumin, Blood 2.1 g/dL (3.4-5.0); Albumin/Globulin Ratio 0.4 (0.8-1.8); Alk Phos 64 U/L (50-136); Anion Gap 4 mmol/L (6-16); Aspartate Aminotrans (AST/SGOT 17 U/L (12-37); Bilirubin, Total 0.8 mg/dL (0.1-1.0); Blood Urea Nitrogen 34 mg/dL (8-24); Bun/Creatinine Ratio 27.6 (12.0-20.0); CO2, Blood 25 mmol/L (21-32); Calcium, Blood 8.9 mg/dL (8.5-10.1); Chloride, Blood 108 mmol/L (98-108); Creatinine, Blood 1.23 mg/dL (0.60-1.20); Globulin, Blood 5.1 g/dL (2.2-4.0); Glomerular Filtration Rate >60 (60-); Glucose, Blood 98 mg/dL (70-99); Potassium, Blood 4.4 mmol/L (3.5-5.5); Sodium, Blood 137 mmol/L (136-145); Total Protein, Blood 7.2 g/dL (6.4-8.2); Troponin I <0.015 ng/mL (0.000-0.040)
[2020-06-02] MEDS ORDERED: SPIR25 PO (21:48)
[2020-06-02] MEDS ORDERED: FURO20 PO (21:49)
[2020-06-02] MEDS ORDERED: MAGNESIUM OXID500 MG PO (21:49)
[2020-06-02] MEDS ORDERED: Prinivil10 MG PO (21:49)
[2020-06-02] MEDS ORDERED: XARELTO20 MG PO (21:50)
[2020-06-02] MEDS ORDERED: MIRTAZAPINE7.5 M1 PO (21:50)
[2020-06-02] MEDS ORDERED: TRAZ50 PO (21:51)
[2020-06-02] MEDS ORDERED: ACET325 PO (21:51)
[2020-06-02] MEDS ORDERED: FAMO20 PO (21:51)
[2020-06-02] MEDS ORDERED: BISA10S PR (21:52)
[2020-06-02] MEDS ORDERED: TRAM50 PO (21:52)
[2020-06-02] MEDS ORDERED: ONDA4ODT MM (21:53)
[2020-06-02] MEDS ORDERED: CEFTRIAXONE2 G1 IV (21:54)
[2020-06-02 23:22] LABS: Influenza A, PCR NEGATIVE (NEGATIVE); Influenza B, PCR NEGATIVE (NEGATIVE); Resp Syncytial Virus, PCR NEGATIVE (NEGATIVE)
[2020-06-02 23:26] LABS: SARS-Cov-2 (COVID-19) PCR, MMC POSITIVE (NEGATIVE)
--- NOTE | 2020-06-03 01:20 | NUR ---
PT ADMIT TO ROOM 311, UNABLE TO TELL RN MEDICATIONS; WAS AT [facility] LUNGS ARE COURSE AT THIS TIME SAT 97% ON RA. PT SAYS HE IS UNABLE TO STAND, INCONTINENT WEARING ATTENDS SKIN TEAR NOTED ON LEFT BUTTOCK, ATTENDS CHANGED AND MEPILEX APPLIED TO COCCYX. BED ALARM ON FOR SAFETY. PICC LINE PRESENT IN LEFT ARM.
[2020-06-03 04:55] LABS: BASOPHILS ABSOLUTE AUTO 0.02 K/mm3 (0.00-0.23); BASOPHILS PERCENT AUTO 1 % (0-2); EOSINOPHILS ABSOLUTE AUTO 0.01 K/mm3 (0.00-0.68); EOSINOPHILS PERCENT AUTO 0 % (0-6); Hemoglobin 8.6 g/dL (13.5-17.5); IMMATURE GRAN ABSOLUTE AUTO 0.01 K/mm3 (0.00-0.10); IMMATURE GRAN PERCENT AUTO 0 % (0-1); LYMPHOCYTES ABSOLUTE AUTO 1.57 K/mm3 (0.84-5.20); LYMPHOCYTES PERCENT AUTO 39 % (21-46); MONOCYTES ABSOLUTE AUTO 0.14 K/mm3 (0.16-1.47); MONOCYTES PERCENT AUTO 4 % (4-13); Mean Corpuscular HGB 33.1 pg (26.0-34.0); Mean Corpuscular HGB Conc 31.9 g/dL (31.5-36.5); Mean Corpuscular Volume 104 fL (80-100); Mean Platelet Volume 11.2 fL (9.1-12.4); NEUTROPHILS ABSOLUTE AUTO 2.24 K/mm3 (1.96-9.15); NEUTROPHILS PERCENT AUTO 56 % (41-73); Platelet Count 52 K/mm3 (150-400); RDW Coefficient Variation 14.9 % (11.7-14.2); RDW Standard Deviation 54.7 fL (35.1-46.3); White Blood Cell Count 3.99 K/mm3 (4.00-11.30)
[2020-06-03 05:17] LABS: Alanine Aminotransfer (ALT/SGP 7 U/L (12-78); Albumin, Blood 1.9 g/dL (3.4-5.0); Albumin/Globulin Ratio 0.4 (0.8-1.8); Alk Phos 58 U/L (50-136); Anion Gap 6 mmol/L (6-16); Aspartate Aminotrans (AST/SGOT 16 U/L (12-37); Bilirubin, Total 0.9 mg/dL (0.1-1.0); Blood Urea Nitrogen 33 mg/dL (8-24); Bun/Creatinine Ratio 29.5 (12.0-20.0); CO2, Blood 25 mmol/L (21-32); Calcium, Blood 8.5 mg/dL (8.5-10.1); Chloride, Blood 108 mmol/L (98-108); Creatinine, Blood 1.12 mg/dL (0.60-1.20); Globulin, Blood 4.9 g/dL (2.2-4.0); Glomerular Filtration Rate >60 (60-); Glucose, Blood 79 mg/dL (70-99); Potassium, Blood 4.3 mmol/L (3.5-5.5); Sodium, Blood 139 mmol/L (136-145); Total Protein, Blood 6.8 g/dL (6.4-8.2)
--- NOTE | 2020-06-03 05:33 | NUR ---
PT IS FORGETFUL, UNABLE TO STAND, WEARING TELEMETRY; NEW PICC LINE BAKARI PLACED 06/02/20. ADMIT THIS SHIFT, WEARING ATTENDS, SKIN TEAR TO LEFT BUTTOCK, INCONTINET, CPAP PER MD. BED ALARM ON.
--- NOTE | 2020-06-03 18:04 | NUR ---
SHIFT SUMMARY: HYPOTENSIVE 90/30-50'S, APPEARS TO BE HIS BASELINE. A&O X 2, FORGETFUL. NO EVENTS ON TELELMETRY, SR 70-80'S. HAS EXTENSIVE ECCHYMOSIS ON BILATERAL ARMS AND PETECHIAE ON CHEST, ABDOMEN, AND BACK. ABDOMEN IS DISTENDED BUT SOFT, HAS BOWEL SOUNDS. L ARM PICC HAS BEEN BLEEDING; PRESSURE DRESSING APPLIED UNTIL STOPPED, DRESSING CHANGED. HE IS CACHECTIC, TOLERATING PO INTAKE. CARDIAC ECHO COMPLETED.
[2020-06-04 04:57] LABS: BASOPHILS ABSOLUTE AUTO 0.01 K/mm3 (0.00-0.23); BASOPHILS PERCENT AUTO 0 % (0-2); EOSINOPHILS PERCENT AUTO 0 % (0-6); Hematocrit 26.9 % (37.0-53.0); Hemoglobin 8.9 g/dL (13.5-17.5); IMMATURE GRAN PERCENT AUTO 0 % (0-1); LYMPHOCYTES ABSOLUTE AUTO 0.82 K/mm3 (0.84-5.20); LYMPHOCYTES PERCENT AUTO 23 % (21-46); MONOCYTES ABSOLUTE AUTO 0.23 K/mm3 (0.16-1.47); MONOCYTES PERCENT AUTO 6 % (4-13); Mean Corpuscular HGB 33.6 pg (26.0-34.0); Mean Corpuscular HGB Conc 33.1 g/dL (31.5-36.5); Mean Corpuscular Volume 102 fL (80-100); Mean Platelet Volume 11.2 fL (9.1-12.4); NEUTROPHILS ABSOLUTE AUTO 2.52 K/mm3 (1.96-9.15); NEUTROPHILS PERCENT AUTO 70 % (41-73); RDW Coefficient Variation 14.9 % (11.7-14.2); RDW Standard Deviation 54.3 fL (35.1-46.3); Red Blood Cell Count 2.65 M/mm3 (4.30-5.90); White Blood Cell Count 3.58 K/mm3 (4.00-11.30)
[2020-06-04 05:01] LABS: Platelet Count 48 K/mm3 (150-400)
[2020-06-04 05:06] LABS: Alanine Aminotransfer (ALT/SGP 10 U/L (12-78); Albumin/Globulin Ratio 0.4 (0.8-1.8); Alk Phos 73 U/L (50-136); Anion Gap 6 mmol/L (6-16); Aspartate Aminotrans (AST/SGOT 19 U/L (12-37); Bilirubin, Total 0.6 mg/dL (0.1-1.0); Blood Urea Nitrogen 40 mg/dL (8-24); Bun/Creatinine Ratio 40.1 (12.0-20.0); CO2, Blood 26 mmol/L (21-32); Calcium, Blood 8.7 mg/dL (8.5-10.1); Chloride, Blood 106 mmol/L (98-108); Globulin, Blood 5.3 g/dL (2.2-4.0); Glomerular Filtration Rate >60 (60-); Glucose, Blood 152 mg/dL (70-99); Sodium, Blood 138 mmol/L (136-145); Total Protein, Blood 7.3 g/dL (6.4-8.2)
--- NOTE | 2020-06-04 05:37 | NUR ---
PT IS BEDBOUND AND WEAK, FORGETFUL AT TIMES, BED ALARM IS USED. ABD EXTENDED LLE EDEMA NOTED, CRITICAL PLATELET COUNT THIS AM OF 48; JALYN LINARES NOTIFIED. PT IS WEARING ATTENDS, CAN BE INCONTINENT AT TIMES.
[2020-06-04 12:14] LABS: Automated BF WBC Count 0.075 K/mm3 (0-999); Body Fluid WBC Count 75 /mm3 (0-999)
[2020-06-04 12:20] LABS: Lactate Dehydrogenase, Body Fl 85 U/L
[2020-06-04 12:25] LABS: Protein, Body Fluid 3.7 g/dL
[2020-06-04 12:53] LABS: RBC Count, Body Fluid 767 /mm3 (0-0)
[2020-06-04 13:04] LABS: Total Cell Count, Body Fluid 100
[2020-06-04 13:05] LABS: Appearance, Body Fluid Clear (Clear); Color, Body Fluid Yellow (None-Yellow)
--- NOTE | 2020-06-04 17:09 | NUR ---
SHIFT SUMMARY PATIENT DENIES PAIN AND NAUSEA. REPORTED SHORTNESS OF BREATH IN AM DUE TO ACITES/DISTENDED ABDOMEN ALTHOUGH WAS MAINTAINING OXYGEN SATURATION AT 95% ON ROOM AIR. PARACENTESIS AT BEDSIDE, 4L REMOVED. PATIENT REPORTS BREATHING MUCH EASIER AFTER PARA. WORKED WITH PT AND OT. UP IN CHAIR 2 ASSIST STAND PIVOT. EATING AND DRINKING WELL. VERY EMOTIONAL ABOUT HIS HEALTH PROGNOSIS THIS SHIFT.
--- NOTE | 2020-06-04 21:38 | NUR ---
AIDE WAS ASISSTING PT TO TOILET USING GAIT BELT, HIS KNEE BUCKLED AND 2-ASSIST WITH GAIT BELT BACK TO BED. BED ALARM IS ON, PT IS VERY WEAK.
[2020-06-05 05:16] LABS: BASOPHILS PERCENT AUTO 0 % (0-2); EOSINOPHILS PERCENT AUTO 0 % (0-6); Hematocrit 24.6 % (37.0-53.0); Hemoglobin 8.1 g/dL (13.5-17.5); IMMATURE GRAN ABSOLUTE AUTO 0.01 K/mm3 (0.00-0.10); IMMATURE GRAN PERCENT AUTO 0 % (0-1); LYMPHOCYTES ABSOLUTE AUTO 0.65 K/mm3 (0.84-5.20); LYMPHOCYTES PERCENT AUTO 21 % (21-46); MONOCYTES ABSOLUTE AUTO 0.17 K/mm3 (0.16-1.47); MONOCYTES PERCENT AUTO 5 % (4-13); Mean Corpuscular HGB 33.8 pg (26.0-34.0); Mean Corpuscular HGB Conc 32.9 g/dL (31.5-36.5); Mean Corpuscular Volume 103 fL (80-100); Mean Platelet Volume 12.1 fL (9.1-12.4); NEUTROPHILS ABSOLUTE AUTO 2.31 K/mm3 (1.96-9.15); NEUTROPHILS PERCENT AUTO 74 % (41-73); RDW Standard Deviation 55.9 fL (35.1-46.3); White Blood Cell Count 3.14 K/mm3 (4.00-11.30)
[2020-06-05 05:30] LABS: Platelet Count 40 K/mm3 (150-400)
[2020-06-05 05:32] LABS: International Normalized Ratio 1.58; Prothrombin Time Results 16.5 Sec (9.7-11.5)
[2020-06-05 05:46] LABS: Alanine Aminotransfer (ALT/SGP 14 U/L (12-78); Albumin, Blood 1.9 g/dL (3.4-5.0); Albumin/Globulin Ratio 0.4 (0.8-1.8); Alk Phos 61 U/L (50-136); Anion Gap 4 mmol/L (6-16); Aspartate Aminotrans (AST/SGOT 27 U/L (12-37); Bilirubin, Total 0.8 mg/dL (0.1-1.0); Blood Urea Nitrogen 40 mg/dL (8-24); Bun/Creatinine Ratio 50.8 (12.0-20.0); CO2, Blood 27 mmol/L (21-32); Calcium, Blood 8.5 mg/dL (8.5-10.1); Chloride, Blood 104 mmol/L (98-108); Creatinine, Blood 0.79 mg/dL (0.60-1.20); Globulin, Blood 4.9 g/dL (2.2-4.0); Glomerular Filtration Rate >60 (60-); Glucose, Blood 128 mg/dL (70-99); Potassium, Blood 5.1 mmol/L (3.5-5.5); Sodium, Blood 135 mmol/L (136-145); Total Protein, Blood 6.8 g/dL (6.4-8.2)
--- NOTE | 2020-06-05 06:11 | NUR ---
PT IS CONFUSED AT TIMES, VERY WEAK WITH ASCITIES. CRITICAL LAB THIS AM OF PLATELETS OF 40, MD ALLRED NOTIFIED; NO ORDERS AT THIS TIME. PT HAS HAD A BM USING THE BEDPAN THIS SHIFT. PARASCENTESIS PROCEDURE YESTERDAY.
--- NOTE | 2020-06-05 17:20 | NUR ---
SHIFT SUMMARY PATIENT DENIES PAIN AND NASUEA. ABDOMINAL DISTENTION/ACITES CAUSING SOME DYSPNEA. MAINTAINING OXYGEN SATURATION AT 93% ON ROOM AIR. DECLINES SUPPLEMENTAL OXYGEN AT THIS TIME. TRANSITIONED TO DNR/COMFORT CARE TODAY DUE TO POOR PROGNOSIS. HOSPICE AT DISCHARGE. NPO AT MIDNIGHT FOR LIKELY PLUER-X DRAIN PLACEMENT TOMORROW.
--- NOTE | 2020-06-06 05:07 | NUR ---
SUMMARY PT HAD NO ISSUES. PT HAS REMAINED COMFORTABLE. PT HAS BEEN NPO SINCE MIDNIGHT. PT CURRENTLY SLEEPING IN NO DISTRESS. CALL LIGHT IN REACH.
[2020-06-06 06:02] LABS: BASOPHILS PERCENT AUTO 0 % (0-2); EOSINOPHILS PERCENT AUTO 0 % (0-6); Hematocrit 24.5 % (37.0-53.0); Hemoglobin 8.1 g/dL (13.5-17.5); IMMATURE GRAN ABSOLUTE AUTO 0.03 K/mm3 (0.00-0.10); IMMATURE GRAN PERCENT AUTO 1 % (0-1); LYMPHOCYTES ABSOLUTE AUTO 0.67 K/mm3 (0.84-5.20); LYMPHOCYTES PERCENT AUTO 19 % (21-46); MONOCYTES ABSOLUTE AUTO 0.23 K/mm3 (0.16-1.47); MONOCYTES PERCENT AUTO 6 % (4-13); Mean Corpuscular HGB 33.9 pg (26.0-34.0); Mean Corpuscular HGB Conc 33.1 g/dL (31.5-36.5); Mean Corpuscular Volume 103 fL (80-100); Mean Platelet Volume 11.7 fL (9.1-12.4); NEUTROPHILS ABSOLUTE AUTO 2.68 K/mm3 (1.96-9.15); NEUTROPHILS PERCENT AUTO 74 % (41-73); RDW Coefficient Variation 15.3 % (11.7-14.2); RDW Standard Deviation 56.5 fL (35.1-46.3); Red Blood Cell Count 2.39 M/mm3 (4.30-5.90); White Blood Cell Count 3.61 K/mm3 (4.00-11.30)
[2020-06-06 06:16] LABS: Platelet Count 43 K/mm3 (150-400)
[2020-06-06 06:19] LABS: International Normalized Ratio 1.59; Prothrombin Time Results 16.6 Sec (9.7-11.5)
--- NOTE | 2020-06-06 06:49 | NUR ---
0400 INCREASED DYSPNEA O2 VIA NC @ 2LPM PLACED ON PT.
--- NOTE | 2020-06-06 17:16 | NUR ---
NO ACUTE CHANGES. PT IS REPOSITIONED EVERY COUPLE HOURS. PT DID NOT HAVE A HIS PLEURX CATH PLACED PER DR HORN JUDGEMENT. PT WILL HAVE ONE DONE PRIOR TO DISCHARGING HOSPITAL FOR COMFORT, BUT WAS NOT A PRIORITY TODAY. PT WAS ABLE TO EAT LUNCH PER DR HORN. PT DENIES PAIN AND HAS BEE COMFORTABLE IN HIS BED. NO DISTRESS NOTED AT THIS TIME AND AOX3. WILL CONTINUE TO MONITOR.
--- NOTE | 2020-06-07 05:33 | NUR ---
SUMMARY PT HAD A EPISODE OF DYSPNEA NOTED. PT WAS FOUND LAYING FLAT AND HAVING SOB. PT SOB RELIVED W/ REPOSITIONING. PT HAS REMAINED COMFORTABLE. PT HAS BEEN SLEEPING QUIETLY. PT REPOSITIONED TOLERATED. CALL LIGHT IN REACH.
--- NOTE | 2020-06-07 13:42 | NUR ---
06/07/20 1342 Marina Cavazos PT ON SCHEDULED ANTIBIOTICS AND RECIEVED PRIOR TO ARRIVAL TO OR.
--- NOTE | 2020-06-07 17:22 | NUR ---
PT AOX3 AND COOPERATIVE OF CARE. PT WAS HAVING MORE ABDONIMAL DISCOMFORT IN THE AM. PT HAD DR HORN PLACE HIS PLUERX DRAIN AND THEY TOOK OF 4L OF FLUID. PT ABDOMEN IS SOFT AND NOT DISTENDED IT WAS PRIOR. PT STATES IT FEELS MUCH BETTER. PT IS RESTING AT THIS TIME WITH CALL LIGHT IN REACH WILL CONTINUE TO MONITOR.
--- NOTE | 2020-06-08 06:13 | NUR ---
SUMMARY PT HAS REMAINED COMFORTABLE T/O MOST OF SHIFT. IT WAS NOTED PT WAS PULLING AT NEWLY PLACED PLEUREX DRAIN LINE. PT WAS ABLE TO PULL OUT STITCHES SECUREING TUBE TO HIS ABD. TUBE WAS COVERED, TAPED AND A ABD BINDER PLACED ON PT. PT DID HAVE C/O OF ABD PAIN AND WAS TX PER EMAR. PT CURRENTLY SLEEPING IN NO DISTRESS. CALL LIGHT IN REACH.
--- NOTE | 2020-06-08 13:49 | NUR ---
MESSAGE LEFT WITH . MESSAGE LEFT WITH CALL BACK NUMBER TO UPDATE PT , DIALLO ON PT STATUS.
--- NOTE | 2020-06-08 15:24 | NUR ---
Case conference note Spoke with Bedside RN Leonor and discussed case. Pt appears to have transitioned. Leonor has contacted spouse who will come in to see Pt. Leonor and RAMAN Bell heading into Pt's room to provided care. Viewed Pt from door way. Pt is non responsive with eyes remaining opened. Long periods of apnea noted. Pt appears comfortable with no S/S of distress at this time. Palliative Care will remain available.
--- NOTE | 2020-06-08 15:37 | NUR ---
Patient is lying in bed and having very labored breathing. I provide prayer and the reading of scripture. Patient is nonresponsive. I remain available to patient and family
--- NOTE | 2020-06-08 16:37 | NUR ---
Spiritual care visit conducted. I Visisted with patient's spouse, Senia, I conducted a life review and provided therapeutic listening and prayer. Senia responds well and shows signs of being comforted.
--- NOTE | 2020-06-08 17:27 | NUR ---
Spiritual care note: Asked to meet with Senia, pt's at bedside. She asked for prayer and wanted to know if machine slat basket maker services would be available to Jovi's mom. I assured her that we would. Prayer provided. Senia then asked for privacy to speak to her fwrouo-an-aog. Jovi was non-responsive and appears very near end-of-life. Food Preparation Supervisor services will remain available.
--- NOTE | 2020-06-09 04:22 | NUR ---
SHIFT SUMMARY- PT. ON COMFORT CARE. HAS BEEN NON RESPONSIVE, LABORED BREATHING NOTED WITH EPISODES OF APNEA. ALSO INCREASED SECRETIONS T/O THE NIGHT. AT THE BEDSIDE ALL NIGHT, STATED PT. APPEARED TO BE IN PAIN/UNCOMFORTABLE. MEDICATED SEVERAL TIMES THIS SHIFT WITH ROXANOL AND ATROPINE GTTS WITH MINIMAL EFFECT. ATIVAN GIVEN WELL. REPOSITIONED Q2HRS AND PRN FOR COMFORT. HAS NOT VOIDED THIS SHIFT. CALL LIGHT WITHIN REACH, SIDE RAILS UPX2, AND BED IN LOW POSITION. WILL CONT TO MONITOR.
--- NOTE | 2020-06-09 09:25 | NUR ---
Pt resting in bed and is non responsive. Moderate dyspnea noted as evidenced by work of breathig. Spouse at bedside and offered encouragement. Pt appears imminant at this time. Spoke with Bedside RN Leonor, discussed case and reviewed comfort medications. Palliative Care will remain available.
--- NOTE | 2020-06-09 09:38 | NUR ---
PT PASSED PT AT 0928. IN ROOM DURING PASSING. PALLIATIVE CARE NURSE HILARIO & THIS RN IN ROOM TO CONFIRM PASSING. EDOUARD SETHI, IN ROOM NOW WITH PT . JW, SENIOR EXAMINER, NOTIFIED. MESSAGE LEFT FOR DR. ESTRELLA TO CALL THIS RN BACK.
--- NOTE | 2020-06-09 09:46 | NUR ---
Pt has . Joint visit with this RN and Bedside RN Leonor. Offered condolences to spouse and therapeutic listening. Spouse appears to be grieving appropriately. Formula Technician Perry arrives and will provide list of homes to choose from. Palliative Care will remain available.
--- NOTE | 2020-06-09 10:00 | NUR ---
Spiritual care visit conducted. Patient just minutes before I enter patient's rm. Senia is grieving appropriately. She goes through the events of the night and this morning and what she saw and felt. I provide a prayer and Senia becomes very tearful. I hold her as she comes through the wave of sadness. I help her choose a home ([facility] in [place]) and then let her RN Laurie know the information regarding the home. I get Senia a cup of ice water and then let her make her phone calls. I will continue to remain availble to Senia as she has a long wait for a family member to pick her up.
--- NOTE | 2020-06-09 11:40 | NUR ---
PT PICKED UP BY ROBERT YANG OF THE [facility]. PT CLOTHES SENT WITH HIM.
== END 2020-06-09 09:28 | DRG 177 ==
LOC: ER 18:51 → MEDS 22:25
PROVIDERS: Emergency Medicine; Internal Medicine; Surgery; ADMIT Internal Medicine
PROC: 3E03329 Introduction of Other Anti-infective into Peripheral Vein, Percutaneous Approach (ICD-10-PCS; 2020-06-03)
PROC: 3E0333Z Introduction of Anti-inflammatory into Peripheral Vein, Percutaneous Approach (ICD-10-PCS; 2020-06-03)
PROC: 8E0ZXY6 Isolation (ICD-10-PCS; 2020-06-03)
PROC: 0W9G30Z Drainage of Peritoneal Cavity with Drainage Device, Percutaneous Approach (ICD-10-PCS; principal; 2020-06-04)
PROC: XW033E5 Introduction of Remdesivir Anti-infective into Peripheral Vein, Percutaneous Approach, New Technology Group 5 (ICD-10-PCS; 2020-06-04)
PROC: 0W9G3ZZ Drainage of Peritoneal Cavity, Percutaneous Approach (ICD-10-PCS; 2020-06-07)
DX: U07.1 COVID-19 (principal); J96.21 Acute and chronic respiratory failure with hypoxia; J12.82 Pneumonia due to coronavirus disease 2019; E43 Unspecified severe protein-calorie malnutrition; I33.0 Acute and subacute infective endocarditis; I50.23 Acute on chronic systolic (congestive) heart failure; B19.10 Unspecified viral hepatitis B without hepatic coma; T82.837A Hemorrhage due to cardiac prosthetic devices, implants and grafts, initial encounter; J90 Pleural effusion, not elsewhere classified; R18.8 Other ascites; Z66 Do not resuscitate; K72.10 Chronic hepatic failure without coma; B19.20 Unspecified viral hepatitis C without hepatic coma; I35.1 Nonrheumatic aortic (valve) insufficiency; B95.0 Streptococcus, group A, as the cause of diseases classified elsewhere; D69.6 Thrombocytopenia, unspecified; I10 Essential (primary) hypertension; Z86.718 Personal history of other venous thrombosis and embolism; Z86.711 Personal history of pulmonary embolism; Z51.5 Encounter for palliative care; Z88.8 Allergy status to other drugs, medicaments and biological substances; Z79.899 Other long term (current) drug therapy; E78.5 Hyperlipidemia, unspecified; G89.29 Other chronic pain; Z98.890 Other specified postprocedural states; Z87.891 Personal history of nicotine dependence; F10.20 Alcohol dependence, uncomplicated; K72.90 Hepatic failure, unspecified without coma
CPT/HCPCS: 0241U; 36415; 36573; 49083; 71045; 71260; 76705; 80053; 82140; 83605; 83615; 83880; 84100; 84145; 84157; 84484; 85025; 85610; 87040; 87070; 87205; 89051; 93005; 93010; 93306; 94640; 94660; 94760; 94762; 96365-59; 96367-59; 97110; 97112; 97162; 97166; 97530; 97535; 99284-25; 99285-25; A9270; C1729; C1751; J0456; J0696; J1100; J1940; J2060; J2250; J3010; J7050; Q9967